=== PATIENT | female | born 1950 | race Caucasian/White ===

== ENCOUNTER 2016-12-10 09:39 | Emergency (ER) | payer BC, MEDICARE ==
[~2016-12-10 09:39] MED LIST: /MOM400 PO; ACET50TA PO; HIGH BP MED; IBUP600T26 PO; LORTTAB5 PO; PRIL20CA PO; VIBR100C PO
[2016-12-10] MEDS ORDERED: ACETAMINOPHEN 325 MG TAB As Ordered ONE (10:35)
[2016-12-10] MEDS ORDERED: IPRATROPIUM 0.5MG/ALBUTEROL 2.5MG INH SOL UD 3ML (DUONEB)(J7620) As Ordered ONE ×2 (10:44→10:45)
--- NOTE | 2016-12-10 10:51 | REP ---
CHEST X-RAY: Two views. HISTORY: Cough. Comparison chest x-ray May 26, 2013. FINDINGS: The lungs are mildly hyperinflated but clear. Pleural angles are sharp. Heart is not enlarged. Pulmonary vasculature is not increased. There are degenerative changes in the thoracic spine. IMPRESSION: Mild hyperinflation. Otherwise no acute disease. Signed by Miguel Angel Juan MD 12/10/2016 11:03 A
[2016-12-10] MEDS ORDERED: AUGMENTIN 875 MG TAB As Ordered ONE (11:28)
--- NOTE | 2016-12-10 11:31 | EDDOCDS ---
Physician Documentation [facility] Name: Varsha Salomon Age: 66 yrs Sex: Female : 1950 Arrival Date: 12/10/2016 Time: 09:39 Bed I6 / 28 Private MD: April Hicks Disposition: 12/10/16 11:14 Discharged to Home/Self Care. Impression: Acute sinusitis, Acute bronchitis. - Condition is Stable. - Discharge Instructions: Sinusitis, Noze-hv-Cthf, Acute Bronchitis, Xcbo-xf-Rlfv. - Prescriptions for Augmentin 875- 125 mg Oral Tablet - take 1 tablet by ORAL route every 12 hours for 10 days; 20 tablet. Ibuprofen 800 mg Oral Tablet - take 1 tablet by ORAL route every 12 hours As needed take with food; 20 tablet. Claritin 10 mg Oral Tablet - take 1 tablet by ORAL route once daily As needed; 30 tablet. Mucinex 600 mg - take 1 tablet by ORAL route 2 times per day; 30 tablet. Albuterol Sulfate 90 mcg/actuation Inhalation HFA Aerosol Inhaler - inhale 2 puff by INHALATION route every 4 hours As needed; 1 Inhaler. Tylenol 325 mg Oral Tablet - take 2 tablets by ORAL route every 6 hours as needed; 30 tablet. - Medication Reconciliation, Local Pharmacy Hours form. - Follow up: April Hicks; When: 1 - 2 days; Reason: Recheck today's complaints, Continuance of care. Follow up: Emergency Department; Reason: Worsening of conditions. - Problem is new. - Symptoms have improved. Historical: - Allergies: no known allergies; - Home Meds: 1. omeprazole 40 mg Oral cpDR 1 cap prn 2. Aleve 220 mg Oral cap every 6 hours (Last dose: 12/10/2016 06:00) - PMHx: GERD; - PSHx: Hysterectomy; Tonsillectomy; - Social history: Smoking status: Patient states former smoker of tobacco. No barriers to communication noted, The patient speaks fluent Cuban, Speaks appropriately for age. - Family history: Not pertinent. - : The pt / caregiver states he / she is not on anticoagulants. Home medication list is obtained from the patient. - Exposure Risk Screening:: None identified. Vital Signs: 12/10 09:41 BP 152 / 79; Pulse 117; Resp 20; Temp 100.1(O); Pulse Ox 96% ; Weight 105.69 kg / jlf 233.01 lbs; Height 5 ft. 5 in. (165.10 cm); Pain 0/10; 11:26 BP 129 / 70; Pulse 121; Resp 20; Temp 99.8; Pulse Ox 95% ; Pain 0/10; jam1 11:30 Temp 99.7(O); js13 09:41 Body Mass Index 38.77 (105.69 kg, 165.10 cm) jlf MDM: 09:47 Strep Screen, Nursing ordered. kr3 09:53 GATS (NEGATIVE STREP SCREEN) Ordered. EDMS 10:03 [facility] Payment Agreement was scanned into [employer] and attached to record. lg 10:14 Financial registration complete. mpb 10:16 Albuterol-Ipratropium 1 neb Nebulizer every 20 minutes x3 ordered. ef1 10:16 Call Respiratory ordered. ef1 10:16 Obtain sample by nasopharyngeal swab ordered. ef1 10:16 Acetaminophen Tablet 650 mg PO once ordered. ef1 10:17 Chest, 2 View (pa\E\lat) Ordered. EDMS 10:18 -Influenza A&B Rapid Antigen - Nose Ordered. EDMS 10:33 Call Respiratory complete. kr3 11:03 -Influenza A&B Rapid Antigen - Nose Reviewed. ef1 11:16 Amoxicillin-Clavulanate 875 mg 1 tabs PO once ordered. ef1 11:17 Chest, 2 View (pa\E\lat) Reviewed. ef1 Administered Medications: 10:36 Drug: Acetaminophen 650 mg [acetaminophen 325 mg tablet (2 tabs)] Route: PO; js13 11:30 Follow up: Temp 99.7 Oral; Response: Temperature is decreased js13 10:44 Drug: Albuterol-Ipratropium 1 neb [ipratropium-albuterol 0.5 mg-3 mg(2.5 mg base)/3 mL ac1 nebulization soln (1 neb)] Route: Nebulizer; 10:57 Follow up: BS-CLEAR BUT DIMINISHED BILAT THROUGHOUT ac1 10:58 Drug: Albuterol-Ipratropium 1 neb [ipratropium-albuterol 0.5 mg-3 mg(2.5 mg base)/3 mL ac1 nebulization soln (1 neb)] Route: Nebulizer; 11:30 Drug: Amoxicillin-Clavulanate 1 tabs [amoxicillin 875 mg-potassium clavulanate 125 mg js13 tablet (1 tabs)] Route: PO; 11:30 Follow up: Response: Pt left department before re-evaluation is appropriate js13 Signatures: Dispatcher [employer] Arabella Huber, RN RN [facility] Sergio Buenrostro, Reg Reg lg Danielle HallRN RN monique3 Lilliana Wayne, PADianneC PADianneC ef1 Katty Hernandes RN RN js13 Bhavesh Hargrove, Reg Reg mpb Alice Carson RT ac1 The chart was reviewed and I authenticate all verbal orders and agree with the evaluation and treatment provided.Attachments: 10:03 [facility] Payment Agreement lg MTDD
--- NOTE | 2016-12-10 11:31 | EDDOCDS ---
Nurse's Notes [facility] Name: Varsha Salomon Age: 66 yrs Sex: Female : 1950 Arrival Date: 12/10/2016 Time: 09:39 Bed I6 / 28 Private MD: April Hicks Diagnosis: Acute sinusitis;Acute bronchitis Presentation: 12/10 09:42 Presenting complaint: Patient states: hurts to cough. sob with exertion. sore throat srm for 1 day. body aches, dry heaving, peeing alot. Risk factors: Stridor is not present. Drooling is not present. Shortness of breath is not present. Cellulitis is not present. Adult Sepsis Screening: The patient does not have new or worsening altered mentation. Patient's respiratory rate is less than 22. Systolic blood pressure is greater than 100. Patient has a qSOFA score of 0- Negative Sepsis Screen. Suicide/Homicide risk assessment- the patient denies having any suicidal and/or homicidal ideations and does not present with any other emotional, behavioral or mental health complaints. Status: Patient is not a customer service clerk or dependent. Transition of care: patient was not received from another setting of care. 09:42 Method Of Arrival: Walkin/Carried/Asstd srm 10:05 Acuity: PORSHA Level 4 srm Triage Assessment: 09:44 General: Appears in no apparent distress, Behavior is appropriate for age, cooperative. srm Pain: Pain currently is 0 out of 10 on a pain scale. At worst was 8 out of 10 on a pain scale. HIV screening NA for this visit Offered previously. EENT: Reports sore throat. Historical: - Allergies: no known allergies; - Home Meds: 1. omeprazole 40 mg Oral cpDR 1 cap prn 2. Aleve 220 mg Oral cap every 6 hours (Last dose: 12/10/2016 06:00) - PMHx: GERD; - PSHx: Hysterectomy; Tonsillectomy; - Social history: Smoking status: Patient states former smoker of tobacco. No barriers to communication noted, The patient speaks fluent Kinyarwanda, Speaks appropriately for age. - Family history: Not pertinent. - : The pt / caregiver states he / she is not on anticoagulants. Home medication list is obtained from the patient. - Exposure Risk Screening:: None identified. Screenin:01 Screening information is obtained from the patient. Fall risk: No risks identified. kr3 Assistance ADL's: requires no assistance with activities of daily living. Abuse/DV Screen: The patient / caregiver reports he/she is: not in a situation that causes fear, pain or injury. Nutritional screening: No deficits noted. Advance Directives: Currently, there is no health care proxy. home support is adequate. Assessment: 10:00 General: Appears in no apparent distress, comfortable, Behavior is appropriate for age, kr3 cooperative. Neurological: No deficits noted. EENT: Throat is clear. Respiratory: Airway is patent Respiratory effort is even, unlabored. Derm: Skin is normal. 11:26 General: Appears in no apparent distress, comfortable, Behavior is appropriate for age, js13 cooperative. Pain: Denies pain. Neurological: Level of Consciousness is awake, alert. Respiratory: Airway is patent Respiratory effort is even, unlabored, Respiratory pattern is regular, symmetrical, Breath sounds are clear. Derm: Skin is pink, warm & dry. Vital Signs: 09:41 BP 152 / 79; Pulse 117; Resp 20; Temp 100.1(O); Pulse Ox 96% ; Weight 105.69 kg; Height jlf 5 ft. 5 in. (165.10 cm); Pain 0/10; 11:26 BP 129 / 70; Pulse 121; Resp 20; Temp 99.8; Pulse Ox 95% ; Pain 0/10; jam1 11:30 Temp 99.7(O); js13 09:41 Body Mass Index 38.77 (105.69 kg, 165.10 cm) [facility] Vitals: 09:41 Log In Time: December 10, 2016 at 09:40. jlf 09:52 Strep Screen is obtained and tested: Negative, a GATSNEG culture is ordered in [facility] kr3 and sent. ED Course: 09:40 Patient visited by Brook Isaacs PCA. jlf 09:40 Patient moved to Waiting jlf 09:41 April Hicks is Private Physician. jlf 09:41 Patient visited by Brook Isaacs PCA. jlf 09:41 Patient moved to Pre RCE jlf 09:44 Patient moved to Triage 1 srm 09:52 Lilliana Wayne PA-C is PHCP. ef1 09:52 Indira Vale MD is Attending Physician. ef1 10:01 The patient / caregiver is instructed regarding the plan of care and ED course. Patient kr3 has correct armband on for positive identification. 10:01 No IV's were initiated during this patient's visit. No procedures done that require kr3 assistance. 10:03 [facility] Payment Agreement was scanned into [employer] and attached to record. lg 10:05 Triage Initiated srm 10:10 Patient visited by Lilliana Wayne PA-C. ef1 10:33 Patient moved to kr3 10:36 -Influenza A&B Rapid Antigen - Nose Sent. js13 10:47 Patient visited by Lilliana Wayne PA-C. ef1 11:07 Chest, 2 View (pa\E\lat) Returned. EDMS 11:13 Patient visited by Lilliana Wayne PA-C. ef1 11:14 April Hicks is Referral Physician. ef1 Administered Medications: 10:36 Drug: Acetaminophen 650 mg [acetaminophen 325 mg tablet (2 tabs)] Route: PO; js13 11:30 Follow up: Temp 99.7 Oral; Response: Temperature is decreased js13 10:44 Drug: Albuterol-Ipratropium 1 neb [ipratropium-albuterol 0.5 mg-3 mg(2.5 mg base)/3 mL ac1 nebulization soln (1 neb)] Route: Nebulizer; 10:57 Follow up: BS-CLEAR BUT DIMINISHED BILAT THROUGHOUT ac1 10:58 Drug: Albuterol-Ipratropium 1 neb [ipratropium-albuterol 0.5 mg-3 mg(2.5 mg base)/3 mL ac1 nebulization soln (1 neb)] Route: Nebulizer; 11:30 Drug: Amoxicillin-Clavulanate 1 tabs [amoxicillin 875 mg-potassium clavulanate 125 mg js13 tablet (1 tabs)] Route: PO; 11:30 Follow up: Response: Pt left department before re-evaluation is appropriate js13 Intake: RT: 10:44 Initial Med Neb Given as ordered Patient was instructed and evaluated on procedure. ac1 Respiratory: Breath sounds are clear Breath sounds are diminished bilaterally. 11:02 Subsequent Med Neb Given as ordered. ac1 11:06 Respiratory: Breath sounds with rhonchi bilaterally. in left posterior lower lobe. ac1 Order Results: Lab Order: -Influenza A&B Rapid Antigen - Nose; SPEC'M 12/10/16 10:36 Test: INFLUENZA A RAPID SCR by ICA; Value: INFLUENZA A RESULTS NEGATIVE; Status: F Test: INFLUENZA A RAPID SCR by ICA; Value: Comments:; Status: F Test: INFLUENZA B RAPID SCR by ICA; Value: INFLUENZA B RESULTS NEGATIVE; Status: F Test Note: ; The Influenza test is a direct rapid immunoassay for the qualitative detection of Influenza viral antigen. Cell culture (Viral Culture) testing should be considered to confirm NEGATIVE results and to assist in detecting other viruses that can provide similar clinical symptoms. Please contact the lab within 24 hours ([phone]) if confirmatory testing is desired. Radiology Order: Chest, 2 View (pa\E\lat) Test: Chest, 2 View (pa\E\lat) REASON FOR EXAMINATION: Cough; CHEST X-RAY: Two views.; ; HISTORY: Cough.; ; Comparison chest x-ray May 26, 2013.; ; FINDINGS: The lungs are mildly hyperinflated but clear. Pleural angles are; sharp. Heart is not enlarged. Pulmonary vasculature is not increased. There; are degenerative changes in the thoracic spine.; ; IMPRESSION:; ; Mild hyperinflation. Otherwise no acute disease.; ; ; ; Unreviewed; Outcome: 10:01 No special radiology studies were completed. kr3 11:14 Discharge ordered by Provider. ef1 11:26 Discharge Assessment: Patient awake, alert and oriented x 3. No cognitive and/or js13 functional deficits noted. Patient verbalized understanding of disposition instructions. patient administered narcotics - no. The following High Risk Discharge criteria are identified: None. Discharged to home ambulatory. Condition: stable. Discharge instructions given to patient, Instructed on discharge instructions, follow up and referral plans. medication usage, Demonstrated understanding of instructions, medications, Pt was receptive of discharge instructions/ teaching. Prescriptions given X x6. Property :Personal belongings accompany Pt. 11:31 Patient left the ED. js13 Signatures: Dispatcher [employer] EDMS Arabella Samayoa RN RN srm Murphy, Jane, KILN WORKER KILN WORKER jam1 Sergio Buenrostro, Reg Reg lg Alice Carson,RT RT ac1 Danielle Hall RN RN kr3 Lilliana Wayne, PA-C PA-C ef1 Katty Hernandes,RN RN js13 Brook Isaacs, KILN WORKER KILN WORKER jlf MTDD
--- NOTE | 2016-12-12 12:31 | EDDOCDS ---
Physician Documentation [facility] Name: Varsha Salomon Age: 66 yrs Sex: Female : 1950 Arrival Date: 12/10/2016 Time: 09:39 Bed I6 / 28 Private MD: April Hicks Disposition: 12/10/16 11:14 Discharged to Home/Self Care. Impression: Acute sinusitis, Acute bronchitis. - Condition is Stable. - Discharge Instructions: Sinusitis, Knkc-wk-Cdcv, Acute Bronchitis, Xrfg-uc-Fgnc. - Prescriptions for Augmentin 875- 125 mg Oral Tablet - take 1 tablet by ORAL route every 12 hours for 10 days; 20 tablet. Ibuprofen 800 mg Oral Tablet - take 1 tablet by ORAL route every 12 hours As needed take with food; 20 tablet. Claritin 10 mg Oral Tablet - take 1 tablet by ORAL route once daily As needed; 30 tablet. Mucinex 600 mg - take 1 tablet by ORAL route 2 times per day; 30 tablet. Albuterol Sulfate 90 mcg/actuation Inhalation HFA Aerosol Inhaler - inhale 2 puff by INHALATION route every 4 hours As needed; 1 Inhaler. Tylenol 325 mg Oral Tablet - take 2 tablets by ORAL route every 6 hours as needed; 30 tablet. - Medication Reconciliation, Local Pharmacy Hours form. - Follow up: April Hicks; When: 1 - 2 days; Reason: Recheck today's complaints, Continuance of care. Follow up: Emergency Department; Reason: Worsening of conditions. - Problem is new. - Symptoms have improved. Historical: - Allergies: no known allergies; - Home Meds: 1. omeprazole 40 mg Oral cpDR 1 cap prn 2. Aleve 220 mg Oral cap every 6 hours (Last dose: 12/10/2016 06:00) - PMHx: GERD; - PSHx: Hysterectomy; Tonsillectomy; - Social history: Smoking status: Patient states former smoker of tobacco. No barriers to communication noted, The patient speaks fluent Thai, Speaks appropriately for age. - Family history: Not pertinent. - : The pt / caregiver states he / she is not on anticoagulants. Home medication list is obtained from the patient. - Exposure Risk Screening:: None identified. Vital Signs: 12/10 09:41 BP 152 / 79; Pulse 117; Resp 20; Temp 100.1(O); Pulse Ox 96% ; Weight 105.69 kg / jlf 233.01 lbs; Height 5 ft. 5 in. (165.10 cm); Pain 0/10; 11:26 BP 129 / 70; Pulse 121; Resp 20; Temp 99.8; Pulse Ox 95% ; Pain 0/10; jam1 11:30 Temp 99.7(O); js13 09:41 Body Mass Index 38.77 (105.69 kg, 165.10 cm) jl MDM: 09:47 Strep Screen, Nursing ordered. kr3 09:53 GATS (NEGATIVE STREP SCREEN) Ordered. EDMS 10:03 [facility] Payment Agreement was scanned into [employer] and attached to record. lg 10:14 Financial registration complete. mpb 10:16 Albuterol-Ipratropium 1 neb Nebulizer every 20 minutes x3 ordered. ef1 10:16 Call Respiratory ordered. ef1 10:16 Obtain sample by nasopharyngeal swab ordered. ef1 10:16 Acetaminophen Tablet 650 mg PO once ordered. ef1 10:17 Chest, 2 View (pa\E\lat) Ordered. EDMS 10:18 -Influenza A&B Rapid Antigen - Nose Ordered. EDMS 10:33 Call Respiratory complete. kr3 11:03 -Influenza A&B Rapid Antigen - Nose Reviewed. ef1 11:16 Amoxicillin-Clavulanate 875 mg 1 tabs PO once ordered. ef1 11:17 Chest, 2 View (pa\E\lat) Reviewed. ef1 12:53 T-Sheet-- Draft Copy was scanned into [employer] and attached to record. klr 14:23 Radiology Report was scanned into [employer] and attached to record. gb Administered Medications: 10:36 Drug: Acetaminophen 650 mg [acetaminophen 325 mg tablet (2 tabs)] Route: PO; js13 11:30 Follow up: Temp 99.7 Oral; Response: Temperature is decreased js13 10:44 Drug: Albuterol-Ipratropium 1 neb [ipratropium-albuterol 0.5 mg-3 mg(2.5 mg base)/3 mL ac1 nebulization soln (1 neb)] Route: Nebulizer; 10:57 Follow up: BS-CLEAR BUT DIMINISHED BILAT THROUGHOUT ac1 10:58 Drug: Albuterol-Ipratropium 1 neb [ipratropium-albuterol 0.5 mg-3 mg(2.5 mg base)/3 mL ac1 nebulization soln (1 neb)] Route: Nebulizer; 11:30 Drug: Amoxicillin-Clavulanate 1 tabs [amoxicillin 875 mg-potassium clavulanate 125 mg js13 tablet (1 tabs)] Route: PO; 11:30 Follow up: Response: Pt left department before re-evaluation is appropriate js13 Signatures: Dispatcher [employer] EDArabella Thomas, RN RN srm Nicki Chew, Reg Reg gb Sergio Buenrostro, Reg Reg lg Danielle Hall,ADOLPH FARFAN kr3 Lilliana Wayne, PADianneC PAKatty LawrenceRN RN js13 Bhavesh Hargrove, Reg Reg mpLola Greene Amy RT ac1 The chart was reviewed and I authenticate all verbal orders and agree with the evaluation and treatment provided.Attachments: 10:03 [facility] Payment Agreement lg 12:53 T-Sheet-- Draft Copy klr Chart Complete [facility]
--- NOTE | 2016-12-12 12:31 | EDDOCDS ---
Physician Documentation [facility] Name: Varsha Salomon Age: 66 yrs Sex: Female : 1950 Arrival Date: 12/10/2016 Time: 09:39 Bed I6 / 28 Private MD: April Hicks Disposition: 12/10/16 11:14 Discharged to Home/Self Care. Impression: Acute sinusitis, Acute bronchitis. - Condition is Stable. - Discharge Instructions: Sinusitis, Zzbm-ds-Suha, Acute Bronchitis, Dzap-vi-Inkl. - Prescriptions for Augmentin 875- 125 mg Oral Tablet - take 1 tablet by ORAL route every 12 hours for 10 days; 20 tablet. Ibuprofen 800 mg Oral Tablet - take 1 tablet by ORAL route every 12 hours As needed take with food; 20 tablet. Claritin 10 mg Oral Tablet - take 1 tablet by ORAL route once daily As needed; 30 tablet. Mucinex 600 mg - take 1 tablet by ORAL route 2 times per day; 30 tablet. Albuterol Sulfate 90 mcg/actuation Inhalation HFA Aerosol Inhaler - inhale 2 puff by INHALATION route every 4 hours As needed; 1 Inhaler. Tylenol 325 mg Oral Tablet - take 2 tablets by ORAL route every 6 hours as needed; 30 tablet. - Medication Reconciliation, Local Pharmacy Hours form. - Follow up: April Hicks; When: 1 - 2 days; Reason: Recheck today's complaints, Continuance of care. Follow up: Emergency Department; Reason: Worsening of conditions. - Problem is new. - Symptoms have improved. Historical: - Allergies: no known allergies; - Home Meds: 1. omeprazole 40 mg Oral cpDR 1 cap prn 2. Aleve 220 mg Oral cap every 6 hours (Last dose: 12/10/2016 06:00) - PMHx: GERD; - PSHx: Hysterectomy; Tonsillectomy; - Social history: Smoking status: Patient states former smoker of tobacco. No barriers to communication noted, The patient speaks fluent [place], Speaks appropriately for age. - Family history: Not pertinent. - : The pt / caregiver states he / she is not on anticoagulants. Home medication list is obtained from the patient. - Exposure Risk Screening:: None identified. Vital Signs: 12/10 09:41 BP 152 / 79; Pulse 117; Resp 20; Temp 100.1(O); Pulse Ox 96% ; Weight 105.69 kg / jlf 233.01 lbs; Height 5 ft. 5 in. (165.10 cm); Pain 0/10; 11:26 BP 129 / 70; Pulse 121; Resp 20; Temp 99.8; Pulse Ox 95% ; Pain 0/10; jam1 11:30 Temp 99.7(O); js13 09:41 Body Mass Index 38.77 (105.69 kg, 165.10 cm) jl MDM: 09:47 Strep Screen, Nursing ordered. kr3 09:53 GATS (NEGATIVE STREP SCREEN) Ordered. EDMS 10:03 [facility] Payment Agreement was scanned into [employer] and attached to record. lg 10:14 Financial registration complete. mpb 10:16 Albuterol-Ipratropium 1 neb Nebulizer every 20 minutes x3 ordered. ef1 10:16 Call Respiratory ordered. ef1 10:16 Obtain sample by nasopharyngeal swab ordered. ef1 10:16 Acetaminophen Tablet 650 mg PO once ordered. ef1 10:17 Chest, 2 View (pa\E\lat) Ordered. EDMS 10:18 -Influenza A&B Rapid Antigen - Nose Ordered. EDMS 10:33 Call Respiratory complete. kr3 11:03 -Influenza A&B Rapid Antigen - Nose Reviewed. ef1 11:16 Amoxicillin-Clavulanate 875 mg 1 tabs PO once ordered. ef1 11:17 Chest, 2 View (pa\E\lat) Reviewed. ef1 12:53 T-Sheet-- Draft Copy was scanned into [employer] and attached to record. klr 14:23 Radiology Report was scanned into [employer] and attached to record. gb Administered Medications: 10:36 Drug: Acetaminophen 650 mg [acetaminophen 325 mg tablet (2 tabs)] Route: PO; js13 11:30 Follow up: Temp 99.7 Oral; Response: Temperature is decreased js13 10:44 Drug: Albuterol-Ipratropium 1 neb [ipratropium-albuterol 0.5 mg-3 mg(2.5 mg base)/3 mL ac1 nebulization soln (1 neb)] Route: Nebulizer; 10:57 Follow up: BS-CLEAR BUT DIMINISHED BILAT THROUGHOUT ac1 10:58 Drug: Albuterol-Ipratropium 1 neb [ipratropium-albuterol 0.5 mg-3 mg(2.5 mg base)/3 mL ac1 nebulization soln (1 neb)] Route: Nebulizer; 11:30 Drug: Amoxicillin-Clavulanate 1 tabs [amoxicillin 875 mg-potassium clavulanate 125 mg js13 tablet (1 tabs)] Route: PO; 11:30 Follow up: Response: Pt left department before re-evaluation is appropriate js13 Signatures: Dispatcher [employer] EDArabella Thomas, RN RN srm Nicki Chew, Reg Reg gb Sergio Buenrostro, Reg Reg lg Danielle Hall,ADOLPH FARFAN kr3 Lilliana Wayne, PADianneC PAKatty LawrenceRN RN js13 Bhavesh Hargrove, Reg Reg mpLola Greene Amy RT ac1 The chart was reviewed and I authenticate all verbal orders and agree with the evaluation and treatment provided.Attachments: 10:03 [facility] Payment Agreement lg 12:53 T-Sheet-- Draft Copy klr Chart [facility]
--- NOTE | 2016-12-12 12:32 | EDDOCDS ---
Nurse's Notes [facility] Name: Varsha Salomon Age: 66 yrs Sex: Female : 1950 Arrival Date: 12/10/2016 Time: 09:39 Bed I6 / 28 Private MD: April Hicks Diagnosis: Acute sinusitis;Acute bronchitis Presentation: 12/10 09:42 Presenting complaint: Patient states: hurts to cough. sob with exertion. sore throat srm for 1 day. body aches, dry heaving, peeing alot. Risk factors: Stridor is not present. Drooling is not present. Shortness of breath is not present. Cellulitis is not present. Adult Sepsis Screening: The patient does not have new or worsening altered mentation. Patient's respiratory rate is less than 22. Systolic blood pressure is greater than 100. Patient has a qSOFA score of 0- Negative Sepsis Screen. Suicide/Homicide risk assessment- the patient denies having any suicidal and/or homicidal ideations and does not present with any other emotional, behavioral or mental health complaints. Status: Patient is not a pharmacy tech customer service or dependent. Transition of care: patient was not received from another setting of care. 09:42 Method Of Arrival: Walkin/Carried/Asstd srm 10:05 Acuity: PORSHA Level 4 srm Triage Assessment: 09:44 General: Appears in no apparent distress, Behavior is appropriate for age, cooperative. srm Pain: Pain currently is 0 out of 10 on a pain scale. At worst was 8 out of 10 on a pain scale. HIV screening NA for this visit Offered previously. EENT: Reports sore throat. Historical: - Allergies: no known allergies; - Home Meds: 1. omeprazole 40 mg Oral cpDR 1 cap prn 2. Aleve 220 mg Oral cap every 6 hours (Last dose: 12/10/2016 06:00) - PMHx: GERD; - PSHx: Hysterectomy; Tonsillectomy; - Social history: Smoking status: Patient states former smoker of tobacco. No barriers to communication noted, The patient speaks fluent Slovak, Speaks appropriately for age. - Family history: Not pertinent. - : The pt / caregiver states he / she is not on anticoagulants. Home medication list is obtained from the patient. - Exposure Risk Screening:: None identified. Screenin:01 Screening information is obtained from the patient. Fall risk: No risks identified. kr3 Assistance ADL's: requires no assistance with activities of daily living. Abuse/DV Screen: The patient / caregiver reports he/she is: not in a situation that causes fear, pain or injury. Nutritional screening: No deficits noted. Advance Directives: Currently, there is no health care proxy. home support is adequate. Assessment: 10:00 General: Appears in no apparent distress, comfortable, Behavior is appropriate for age, kr3 cooperative. Neurological: No deficits noted. EENT: Throat is clear. Respiratory: Airway is patent Respiratory effort is even, unlabored. Derm: Skin is normal. 11:26 General: Appears in no apparent distress, comfortable, Behavior is appropriate for age, js13 cooperative. Pain: Denies pain. Neurological: Level of Consciousness is awake, alert. Respiratory: Airway is patent Respiratory effort is even, unlabored, Respiratory pattern is regular, symmetrical, Breath sounds are clear. Derm: Skin is pink, warm & dry. Vital Signs: 09:41 BP 152 / 79; Pulse 117; Resp 20; Temp 100.1(O); Pulse Ox 96% ; Weight 105.69 kg; Height jlf 5 ft. 5 in. (165.10 cm); Pain 0/10; 11:26 BP 129 / 70; Pulse 121; Resp 20; Temp 99.8; Pulse Ox 95% ; Pain 0/10; jam1 11:30 Temp 99.7(O); js13 09:41 Body Mass Index 38.77 (105.69 kg, 165.10 cm) [facility] Vitals: 09:41 Log In Time: December 10, 2016 at 09:40. jlf 09:52 Strep Screen is obtained and tested: Negative, a GATSNEG culture is ordered in [facility] kr3 and sent. ED Course: 09:40 Patient visited by Brook Isaacs PCA. jlf 09:40 Patient moved to Waiting jlf 09:41 April Hicks is Private Physician. jlf 09:41 Patient visited by Brook Isaacs PCA. jlf 09:41 Patient moved to Pre RCE jlf 09:44 Patient moved to Triage 1 srm 09:52 Lilliana Wayne PA-C is PHCP. ef1 09:52 Indira Vale MD is Attending Physician. ef1 10:01 The patient / caregiver is instructed regarding the plan of care and ED course. Patient kr3 has correct armband on for positive identification. 10:01 No IV's were initiated during this patient's visit. No procedures done that require kr3 assistance. 10:03 [facility] Payment Agreement was scanned into Seriously and attached to record. lg 10:05 Triage Initiated srm 10:10 Patient visited by Lilliana Wayne PA-C. ef1 10:33 Patient moved to kr3 10:36 -Influenza A&B Rapid Antigen - Nose Sent. js13 10:47 Patient visited by Lilliana Wayne PA-C. ef1 11:07 Chest, 2 View (pa\E\lat) Returned. EDMS 11:13 Patient visited by Lilliana Wayne PA-C. ef1 11:14 April Hicks is Referral Physician. ef1 11:38 Chest, 2 View (pa\E\lat) Returned. EDMS 12:53 T-Sheet-- Draft Copy was scanned into Seriously and attached to record. klr 14:23 Radiology Report was scanned into Seriously and attached to record. gb Administered Medications: 10:36 Drug: Acetaminophen 650 mg [acetaminophen 325 mg tablet (2 tabs)] Route: PO; js13 11:30 Follow up: Temp 99.7 Oral; Response: Temperature is decreased js13 10:44 Drug: Albuterol-Ipratropium 1 neb [ipratropium-albuterol 0.5 mg-3 mg(2.5 mg base)/3 mL ac1 nebulization soln (1 neb)] Route: Nebulizer; 10:57 Follow up: BS-CLEAR BUT DIMINISHED BILAT THROUGHOUT ac1 10:58 Drug: Albuterol-Ipratropium 1 neb [ipratropium-albuterol 0.5 mg-3 mg(2.5 mg base)/3 mL ac1 nebulization soln (1 neb)] Route: Nebulizer; 11:30 Drug: Amoxicillin-Clavulanate 1 tabs [amoxicillin 875 mg-potassium clavulanate 125 mg js13 tablet (1 tabs)] Route: PO; 11:30 Follow up: Response: Pt left department before re-evaluation is appropriate js13 Intake: RT: 10:44 Initial Med Neb Given as ordered Patient was instructed and evaluated on procedure. ac1 Respiratory: Breath sounds are clear Breath sounds are diminished bilaterally. 11:02 Subsequent Med Neb Given as ordered. ac1 11:06 Respiratory: Breath sounds with rhonchi bilaterally. in left posterior lower lobe. ac1 Order Results: Lab Order: GATS (NEGATIVE STREP SCREEN); SPEC'M 12/10/16 09:47 Test: GATS CULTURE (NEG STREP SCR); Value: GATS RESULT NEGATIVE FOR STREP PYOGENES (GROUP A); Status: F Test: GATS CULTURE (NEG STREP SCR); Value: <EXTERNAL COMMENT eCWMed> FULL REPORT IN LAB NOTES (eCW and Medent).; Status: F Lab Order: -Influenza A&B Rapid Antigen - Nose; SPEC'M 12/10/16 10:36 Test: INFLUENZA A RAPID SCR by ICA; Value: INFLUENZA A RESULTS NEGATIVE; Status: F Test: INFLUENZA A RAPID SCR by ICA; Value: Comments:; Status: F Test: INFLUENZA B RAPID SCR by ICA; Value: INFLUENZA B RESULTS NEGATIVE; Status: F Test Note: ; The Influenza test is a direct rapid immunoassay for the qualitative detection of Influenza viral antigen. Cell culture (Viral Culture) testing should be considered to confirm NEGATIVE results and to assist in detecting other viruses that can provide similar clinical symptoms. Please contact the lab within 24 hours ([phone]) if confirmatory testing is desired. Radiology Order: Chest, 2 View (pa\E\lat) Test: Chest, 2 View (pa\E\lat) REASON FOR EXAMINATION: Cough; CHEST X-RAY: Two views.; ; HISTORY: Cough.; ; Comparison chest x-ray May 26, 2013.; ; FINDINGS: The lungs are mildly hyperinflated but clear. Pleural angles are; sharp. Heart is not enlarged. Pulmonary vasculature is not increased. There; are degenerative changes in the thoracic spine.; ; IMPRESSION:; ; Mild hyperinflation. Otherwise no acute disease.; ; ; Signed by; Miguel Angel Juan MD 12/10/2016 11:03 A; Outcome: 10:01 No special radiology studies were completed. kr3 11:14 Discharge ordered by Provider. ef1 11:26 Discharge Assessment: Patient awake, alert and oriented x 3. No cognitive and/or js13 functional deficits noted. Patient verbalized understanding of disposition instructions. patient administered narcotics - no. The following High Risk Discharge criteria are identified: None. Discharged to home ambulatory. Condition: stable. Discharge instructions given to patient, Instructed on discharge instructions, follow up and referral plans. medication usage, Demonstrated understanding of instructions, medications, Pt was receptive of discharge instructions/ teaching. Prescriptions given X x6. Property :Personal belongings accompany Pt. 11:31 Patient left the ED. js13 Signatures: Dispatcher [employer] EDMS Arabella Samayoa, RN RN Mallory Sherman, BAKING POWDER MIXER BAKING POWDER MIXER jam1 Nicki Chew, Reg Reg gb Sergio Buenrostro, Reg Reg lg Yamileth,Alice,RT RT ac1 Danielle Hall,RN RN kr3 Lilliana Wayne, PA-C PA-Michelle ef1 Katty Hernandes,RN RN js13 Brook Isaacs, BAKING POWDER MIXER BAKING POWDER MIXER herbf Lola Starr Chart Complete MTDChelly
== END 2016-12-10 11:31 | disposition home or self-care (01) ==
LOC: M ED 09:39
DX: J01.90 Acute sinusitis, unspecified (principal); J20.9 Acute bronchitis, unspecified; K21.9 Gastro-esophageal reflux disease without esophagitis; Z87.891 Personal history of nicotine dependence; Z79.899 Other long term (current) drug therapy

== ENCOUNTER 2017-03-07 12:17 | Emergency (ER) | payer MEDICARE ==
[~2017-03-07] VITALS: Ht 165.1 cm; Wt 108.9 kg
[2017-03-07 12:17] VITALS: BP 206/90
[2017-03-07] MEDS ORDERED: ALEV220C2 PO (12:24)
[2017-03-07] MEDS ORDERED: ACET30TAB PO (13:41)
[2017-03-07] MEDS ORDERED: ROBA500T PO (13:41)
[2017-03-07] MEDS ORDERED: MOBI7.5T10 PO (13:41)
--- NOTE | 2017-03-07 13:57 | REP ---
LEFT FEMUR: AP and lateral views of the left femur are performed and demonstrate no fracture or dislocation. No intrinsic osseous pathology is seen. There is mild joint space narrowing, subchondral sclerosis, and spurring at the hip joint and knee joint. IMPRESSION: Mild degenerative changes. No fracture or dislocation. Signed by Iam Hubbard MD 03/07/2017 04:47 P
== END 2017-03-07 13:54 | disposition home or self-care (01) ==
LOC: M ED 12:37
DX: S76.912A Strain of unspecified muscles, fascia and tendons at thigh level, left thigh, initial encounter (principal); X58.XXXA Exposure to other specified factors, initial encounter; Y92.89 Other specified places as the place of occurrence of the external cause; Y93.89 Activity, other specified; Y99.8 Other external cause status; Z79.899 Other long term (current) drug therapy

== ENCOUNTER → 2018-01-10 | Outpatient (CLI) | payer MEDICARE ==
[2018-01-10 14:13] LABS: ANION GAP 5 MEQ/L (8-16); BLOOD UREA NITROGEN 14 MG/DL (7-18); CALCIUM LEVEL 8.8 MG/DL (8.8-10.2); CARBON DIOXIDE LEVEL 32 MEQ/L (21-32); CHLORIDE LEVEL 105 MEQ/L (98-107); CHOLESTEROL LEVEL 193 MG/DL (<200); GLOMERULAR FILTRATION RATE > 60.0 (>45); GLUCOSE, FASTING 99 MG/DL (70-100); HDL CHOLESTEROL 48 MG/DL (>40); LDL CHOLESTEROL 124.4 MG/DL (<100); NON-HDL-C 145 MG/DL; POTASSIUM SERUM 4.3 MEQ/L (3.5-5.1); SODIUM LEVEL 142 MEQ/L (136-145); TRIGLYCERIDES LEVEL 103 MG/DL (<150)
[2018-01-10 16:13] LABS: ESTIMATED AVERAGE GLUCOSE 137 MG/DL (60-110); HEMOGLOBIN A1c 6.4 %
== END ==
LOC: M LAB 11:56
DX: E66.01 Morbid (severe) obesity due to excess calories (principal); I10 Essential (primary) hypertension; Z79.899 Other long term (current) drug therapy
CPT/HCPCS: 83036

== ENCOUNTER → 2018-05-08 | Outpatient (CLI) | payer MEDICARE ==
[2018-05-08 10:11] LABS: NT-PRO BNP 240 PG/ML (<125)
[2018-05-08 10:25] LABS: ESTIMATED AVERAGE GLUCOSE 134 MG/DL (60-110); HEMOGLOBIN A1c 6.3 %
== END ==
LOC: M LAB 09:23
DX: R60.0 Localized edema (principal); R73.03 Prediabetes
CPT/HCPCS: 83036

== ENCOUNTER → 2018-06-18 | Outpatient (CLI) | payer MEDICARE ==
[2018-06-18 11:43] LABS: ANION GAP 4 MEQ/L (8-16); BLOOD UREA NITROGEN 20 MG/DL (7-18); CALCIUM LEVEL 9.1 MG/DL (8.8-10.2); CARBON DIOXIDE LEVEL 32 MEQ/L (21-32); CHLORIDE LEVEL 105 MEQ/L (98-107); CHOLESTEROL LEVEL 167 MG/DL (<200); CHOLESTEROL RISK RATIO 4.513 (<5); CREATININE FOR GFR 0.63 MG/DL (0.55-1.30); GLOMERULAR FILTRATION RATE > 60.0 (>45); GLUCOSE, FASTING 95 MG/DL (70-100); HDL CHOLESTEROL 37 MG/DL (>40); LDL CHOLESTEROL 83.8 MG/DL (<100); NON-HDL-C 130 MG/DL; POTASSIUM SERUM 4.4 MEQ/L (3.5-5.1); SODIUM LEVEL 141 MEQ/L (136-145); TRIGLYCERIDES LEVEL 231 MG/DL (<150)
[2018-06-18 11:57] LABS: MALB URINE SIEMENS 12.4 MG/L; MAU/CREAT RATIO 9.4 MCG/MG (0.0-30.0)
[2018-06-18 22:08] LABS: ESTIMATED AVERAGE GLUCOSE 137 MG/DL (60-110); HEMOGLOBIN A1c 6.4 %
== END ==
LOC: M LAB 10:38
DX: E78.00 Pure hypercholesterolemia, unspecified (principal); R73.03 Prediabetes; I10 Essential (primary) hypertension
CPT/HCPCS: 83036

== ENCOUNTER 2018-06-28 19:38 | Emergency (ER) | payer MEDICARE ==
[2018-06-28] MEDS ORDERED: ASPIRIN 81 MG CHEW TABLET PO (20:15)
[2018-06-28 20:22] LABS: BASO % 0.3 % (0.0-1.0); EOS # 0.3 10^3/uL (0.0-0.50); EOS % 3.4 % (0.0-3.0); HEMATOCRIT 36.4 % (36.0-47.0); HEMOGLOBIN 11.9 g/dl (12.0-15.5); IMMATURE GRANULOCYTE % 0.5 % (0-3.0); LYMPH % 22.3 % (24.0-44.0); MEAN CORPUSCULAR HEMOGLOBIN 28.7 pg (27.0-33.0); MEAN CORPUSCULAR HGB CONC 32.7 g/dl (32.0-36.5); MEAN CORPUSCULAR VOLUME 87.9 fl (80.0-96.0); MONO # 0.8 10^3/uL (0.0-0.8); MONO % 9.1 % (0.0-5.0); NEUTROPHILS # 5.7 10^3/uL (1.8-7.7); NEUTROPHILS % 64.4 % (36.0-66.0); PLATELET COUNT, AUTOMATED 204 10^3/uL (150-450); RED BLOOD COUNT 4.14 10^6/uL (4.00-5.40); RED CELL DISTRIBUTION WIDTH 13.7 % (11.5-14.5); WHITE BLOOD COUNT 8.8 10^3/uL (4.0-10.0)
[2018-06-28 20:33] LABS: INR 1.01; PROTHROMBIN TIME 13.4 SECONDS (12.1-14.4)
[2018-06-28 20:34] LABS: PARTIAL THROMBOPLASTIN TIME 30.8 SECONDS (25.4-37.6)
[2018-06-28 20:36] LABS: D-DIMER QUANT 490.8 ng/ml (<500)
[2018-06-28 20:38] LABS: ALBUMIN 3.8 GM/DL (3.2-5.2); ALBUMIN/GLOBULIN RATIO 1.31 (1.00-1.93); ALT/SGPT 25 U/L (12-78); ANION GAP 6 MEQ/L (8-16); AST/SGOT 16 U/L (7-37); BILIRUBIN,DIRECT < 0.1 MG/DL (0.0-0.2); BILIRUBIN,TOTAL 0.4 MG/DL (0.2-1.0); BLOOD UREA NITROGEN 15 MG/DL (7-18); C REACTIVE PROTEIN QUANTITATIV 0.39 MG/DL (0.00-0.30); CALCIUM LEVEL 8.7 MG/DL (8.8-10.2); CARBON DIOXIDE LEVEL 31 MEQ/L (21-32); CHLORIDE LEVEL 106 MEQ/L (98-107); CPK CREATINE PHOSPHOKINASE 105 U/L (26-192); CREATININE FOR GFR 0.68 MG/DL (0.55-1.30); GLOMERULAR FILTRATION RATE > 60.0 (>45); GLUCOSE, FASTING 119 MG/DL (70-100); LIPASE 112 U/L (73-393); POTASSIUM SERUM 4.1 MEQ/L (3.5-5.1); SODIUM LEVEL 143 MEQ/L (136-145); TOTAL PROTEIN 6.7 GM/DL (6.4-8.2); TROPONIN I < 0.02 NG/ML (< 0.10)
[2018-06-28 20:43] LABS: ALKALINE PHOSPHATASE 106 U/L (45-117); CK-MB VALUE MASS 1.5 NG/ML (<3.6); MB/CK RELATIVE INDEX 1.42 (< OR =4); NT-PRO BNP 730 PG/ML (<125)
[2018-06-28] MEDS: MAALOX 30 ML SUSP *UDC PO (21:04)
[2018-06-28] MEDS: FUROSEMIDE 20 MG/2 ML VIAL (J1940) IV (21:05)
== END 2018-06-28 21:31 | disposition home or self-care (01) ==
LOC: M ED 19:38
DX: J06.9 Acute upper respiratory infection, unspecified (principal); R07.89 Other chest pain; K21.9 Gastro-esophageal reflux disease without esophagitis; E78.5 Hyperlipidemia, unspecified; I10 Essential (primary) hypertension; Z87.891 Personal history of nicotine dependence
CPT/HCPCS: J1940

== ENCOUNTER 2018-08-31 05:26 | Emergency (ER) | payer MEDICARE ==
[2018-08-31] MEDS: IPRATROPIUM 0.5MG/ALBUTEROL 2.5MG INH SOL UD 3ML (DUONEB)(J7620) NEB (07:11)
[2018-08-31] MEDS: predniSONE 20 MG TAB PO (07:16)
[2018-08-31] MEDS: AZITHROMYCIN 250 MG TAB PO (07:16)
== END 2018-08-31 08:00 | disposition home or self-care (01) ==
LOC: M ED 05:26
DX: J45.901 Unspecified asthma with (acute) exacerbation (principal); J44.0 Chronic obstructive pulmonary disease with (acute) lower respiratory infection; I10 Essential (primary) hypertension; K21.9 Gastro-esophageal reflux disease without esophagitis; Z87.891 Personal history of nicotine dependence
CPT/HCPCS: 71046

== ENCOUNTER 2018-11-14 08:51 | Day surgery (SDC) | payer MEDICARE ==
[~2018-11-14] VITALS: Ht 165.1 cm; Wt 107.5 kg
[~2018-11-14 08:51] MED LIST changes: +ACET30TAB PO; +ALBU83IN NEB; +ALEV220C2 PO; +ASPI1TAB PO; +LIDOCAINE 2% INJ 100 MG/5 ML SDV (FOR ANES.) As Ordered ONE; +LISI-542 PO; +METO1TAB33; +MOBI4TAB PO; +NS 1,000 ML IV ONE; +OMEP20TA PO; +OMEP40CA2 PO; +PRED10TA2 PO; +PROAAER10 INH; +PROPOFOL 200 MG/20 ML VIAL As Ordered ONE; +ROBA500T PO; +VENTAER INH; +ZITH250T PO; +ZITHTAB PO
--- NOTE | 2018-11-14 10:17 | ROOR ---
Patient Name: Varsha Salomon Procedure Date: 11/14/2018 10:03 AM Date of : 1950 Age: 68 Room: [facility] Gender: Female Note Status: Finalized Procedure: Upper GI endoscopy Indications: Heartburn Providers: Tevin COBURN MD Referring MD: Carlos Escamilla MD Requesting Provider: Medicines: Monitored Anesthesia Care Complications: No immediate complications. Procedure: Pre-Anesthesia Assessment: - The heart rate, respiratory rate, oxygen saturations, blood pressure, adequacy of pulmonary ventilation, and response to care were monitored throughout the procedure. The Endoscope was introduced through the mouth, and advanced to the third part of duodenum. The upper GI endoscopy was accomplished without difficulty. The patient tolerated the procedure well. Findings: The examined esophagus was normal. Very small (insignificant) Hiatal Hernia. The entire examined stomach was normal. Mucosal flattening was found in the second portion of the duodenum. Biopsies for histology were taken with a cold forceps for evaluation of celiac disease. Impression: - Normal esophagus. - Very small (insignificant) Hiatal Hernia. - Normal stomach. - Flattened mucosa was found in the duodenum. Biopsied. Recommendation: - Continue present medications. - Telephone endoscopist for pathology results in 2 weeks. Tevin Coburn MD Tevin COBURN MD 11/14/2018 10:17:24 AM This report has been signed electronically. Number of Addenda: 0 Note Initiated On: 11/14/2018 10:03 AM Estimated Blood Loss: Estimated blood loss: none.
--- NOTE | 2018-11-14 10:34 | ROOR ---
Patient Name: Varsha Salomon Procedure Date: 11/14/2018 10:03 AM Date of : 1950 Age: 68 Room: [facility] Gender: Female Note Status: Finalized Procedure: Colonoscopy Indications: Screening for colorectal malignant neoplasm Providers: Tevin COBURN MD Referring MD: Carlos Escamilla MD Requesting Provider: Medicines: Monitored Anesthesia Care Complications: No immediate complications. Procedure: Pre-Anesthesia Assessment: - The heart rate, respiratory rate, oxygen saturations, blood pressure, adequacy of pulmonary ventilation, and response to care were monitored throughout the procedure. The Colonoscope was introduced through the anus and advanced to the terminal ileum, with identification of the appendiceal orifice and IC valve. The colonoscopy was performed without difficulty. The patient tolerated the procedure well. The quality of the bowel preparation was good. Findings: The perianal and digital rectal examinations were normal. Two sessile polyps were found in the sigmoid colon and splenic flexure. The polyps were diminutive in size. These polyps were removed with a cold snare. Resection and retrieval were complete. Mild sigmoid diverticulosis and small internal hemorrhoids. The exam was otherwise without abnormality on direct and retroflexion views. Impression: - Two diminutive polyps in the sigmoid colon and at the splenic flexure, removed with a cold snare. Resected and retrieved. - Mild sigmoid diverticulosis and small internal hemorrhoids. - The examination was otherwise normal on direct and retroflexion views. Recommendation: - Await pathology results. - Telephone endoscopist for pathology results in 2 weeks. - If the pathology report reveals adenomatous tissue, then repeat the colonoscopy for surveillance in 3 - 5 years. - If the pathology report indicates hyperplastic polyp, then repeat colonoscopy for screening purposes in 10 years. Tevin Coburn MD Tevin COBURN MD 11/14/2018 10:34:17 AM This report has been signed electronically. Number of Addenda: 0 Note Initiated On: 11/14/2018 10:03 AM Estimated Blood Loss: Estimated blood loss: none.
[2018-11-14 11:05] VITALS: BP 190/93
== END 2018-11-14 11:30 | disposition home or self-care (01) ==
LOC: M OPP 08:51
PROVIDERS: ATTEND Internal Medicine Gastroenterology
DX: D12.5 Benign neoplasm of sigmoid colon (principal); D12.3 Benign neoplasm of transverse colon; K57.30 Diverticulosis of large intestine without perforation or abscess without bleeding; K64.8 Other hemorrhoids; R12 Heartburn; K44.9 Diaphragmatic hernia without obstruction or gangrene; K31.89 Other diseases of stomach and duodenum; Z12.11 Encounter for screening for malignant neoplasm of colon

== ENCOUNTER → 2018-11-26 | Outpatient (CLI) | payer MEDICARE ==
[~2018-11-26] MED LIST changes: -LIDOCAINE 2% INJ 100 MG/5 ML SDV (FOR ANES.) As Ordered ONE; -NS 1,000 ML IV ONE; -PROPOFOL 200 MG/20 ML VIAL As Ordered ONE
== END ==
LOC: M LAB 14:44
PROVIDERS: ATTEND Internal Medicine Gastroenterology
DX: K90.0 Celiac disease (principal)

== ENCOUNTER → 2018-12-24 | Outpatient (CLI) | payer MEDICARE ==
[~2018-12-24] MED LIST changes: +E-Z-PAQUE 96% w/w SUSP 176GM BTL As Ordered ONE
--- NOTE | 2018-12-24 18:32 | REP ---
Small bowel follow-through The procedure was performed under the direct supervision of Dr. Blum. The images were reviewed with Dr. Blum. The hand spring repairer film shows no organomegaly or pathological masses. The intestinal gas pattern is nonspecific. Liquid barium was administered and the barium column was followed through the small bowel to the level of the terminal ileum. Small bowel transit time is approximately 15 minutes . During fluoroscopy gentle palpation shows all loops are freely movable and pliable. There are no fixed or angulated loops. The small bowel mucosal pattern is normal in course and caliber. There is no transition to suggest a partial small bowel obstruction. Spot filming of the terminal ileum shows it to be unremarkable. Impression: Small bowel follow-through examination within normal limits. 1.1 minutes of fluoro time was utilized for this procedure. Reviewed by SINCERE Flores 12/24/2018 05:47 P Electronically Signed by Derek Blum MD 12/24/2018 06:22 P
== END ==
LOC: M RAD 07:53
PROVIDERS: ATTEND Internal Medicine Gastroenterology
DX: K90.0 Celiac disease (principal)

== ENCOUNTER → 2019-12-11 | Outpatient (REF) | payer MEDICARE ==
[~2019-12-11] MED LIST changes: -/MOM400 PO; +ACET-716 PO; -ACET30TAB PO; -ACET50TA PO; -ASPI1TAB PO; +ASPI81TA26 PO; -E-Z-PAQUE 96% w/w SUSP 176GM BTL As Ordered ONE; +MAPA500T17 PO; +MILK10SU PO; +OMEP-358 PO; -OMEP20TA PO; -OMEP40CA2 PO; +OMEP40CA97 PO
[2019-12-11 15:25] LABS: INFLUENZA A AMPLIFICATION POSITIVE (NEGATIVE); INFLUENZA B AMPLIFICATION NEGATIVE (NEGATIVE)
== END ==
LOC: M LAB REF 14:24
PROVIDERS: ATTEND Physician Assistant
DX: J11.1 Influenza due to unidentified influenza virus with other respiratory manifestations (principal)

== ENCOUNTER → 2019-12-27 | Outpatient (CLI) | payer MEDICARE ==
[2019-12-27 10:29] LABS: HEMATOCRIT 37.6 % (36.0-47.0); HEMOGLOBIN 12.1 g/dl (12.0-15.5); MEAN CORPUSCULAR HEMOGLOBIN 27.9 pg (27.0-33.0); MEAN CORPUSCULAR HGB CONC 32.2 g/dl (32.0-36.5); MEAN CORPUSCULAR VOLUME 86.8 fl (80.0-96.0); PLATELET COUNT, AUTOMATED 240 10^3/uL (150-450); RED BLOOD COUNT 4.33 10^6/uL (4.00-5.40); WHITE BLOOD COUNT 9.7 10^3/uL (4.0-10.0)
== END ==
LOC: M LAB 09:57
PROVIDERS: ATTEND Physician Assistant Medical
DX: K90.0 Celiac disease (principal)

== ENCOUNTER → 2020-05-31 | Outpatient (CLI) | payer MEDICARE | LOC: M LAB 09:35 | PROVIDERS: ATTEND Physician Assistant Medical | DX: K90.0 Celiac disease (principal) ==

== ENCOUNTER 2020-08-08 17:27 | Emergency (ER) | payer MEDICARE ==
[~2020-08-08] VITALS: Ht 165.1 cm; Wt 109.7 kg
[2020-08-08 17:48] VITALS: BP 178/93
== END 2020-08-08 18:53 | disposition home or self-care (01) ==
LOC: M ED 17:27
DX: M25.561 Pain in right knee (principal); I10 Essential (primary) hypertension; J44.9 Chronic obstructive pulmonary disease, unspecified; R73.03 Prediabetes; K21.9 Gastro-esophageal reflux disease without esophagitis

== ENCOUNTER → 2021-04-26 | Outpatient (CLI) | payer MEDICARE ==
[~2021-04-26] MED LIST changes: -LISI-542 PO; +LISI-898 PO; +OMEP40CA4 PO; -OMEP40CA97 PO
== END ==
LOC: M LAB 12:13
PROVIDERS: ATTEND Nurse Practitioner Family
DX: K90.0 Celiac disease (principal)

== ENCOUNTER → 2021-04-26 | Outpatient (CLI) | payer MEDICARE ==
[2021-04-26 13:23] LABS: BASO # 0.1 10^3/uL (0.0-0.2); BASO % 0.7 % (0.0-1.0); EOS # 0.3 10^3/uL (0.0-0.5); EOS % 3.2 % (0.0-3.0); HEMATOCRIT 39.1 % (36.0-47.0); HEMOGLOBIN 12.5 g/dl (12.0-15.5); LYMPH # 2.3 10^3/uL (1.5-5.0); LYMPH % 25.5 % (24.0-44.0); MEAN CORPUSCULAR HEMOGLOBIN 28.2 pg (27.0-33.0); MEAN CORPUSCULAR VOLUME 88.1 fl (80.0-96.0); MONO # 0.8 10^3/uL (0.0-0.8); MONO % 8.8 % (2.0-8.0); NEUTROPHILS # 5.5 10^3/uL (1.5-8.5); NEUTROPHILS % 60.3 % (36.0-66.0); PLATELET COUNT, AUTOMATED 220 10^3/uL (150-450); RED BLOOD COUNT 4.44 10^6/uL (4.00-5.40); WHITE BLOOD COUNT 9.2 10^3/uL (4.0-10.0)
[2021-04-26 13:40] LABS: HEMOGLOBIN A1c 6.3 %
[2021-04-26 14:04] LABS: ALBUMIN 3.9 GM/DL (3.2-5.2); ALT/SGPT 77 U/L (12-78); BILIRUBIN,TOTAL 0.5 MG/DL (0.2-1.0); BLOOD UREA NITROGEN 13 MG/DL (7-18); CALCIUM LEVEL 9.2 MG/DL (8.8-10.2); CARBON DIOXIDE LEVEL 31 MEQ/L (21-32); CHLORIDE LEVEL 105 MEQ/L (98-107); CHOLESTEROL LEVEL 211 MG/DL (<200); GLOMERULAR FILTRATION RATE > 60.0 (>45); GLUCOSE, FASTING 100 MG/DL (70-100); HDL CHOLESTEROL 39 MG/DL (>40); LDL CHOLESTEROL 151 MG/DL (<100); NON-HDL-C 172 MG/DL; POTASSIUM SERUM 4.2 MEQ/L (3.5-5.1); SODIUM LEVEL 139 MEQ/L (136-145); TOTAL PROTEIN 7.3 GM/DL (6.4-8.2); TRIGLYCERIDES LEVEL 107 MG/DL (<150)
[2021-04-26 14:14] LABS: CREATININE, URINE 94.9 MG/DL; MALB URINE SIEMENS 5.6 MG/L; MAU/CREAT RATIO 5.9 MCG/MG (0.0-30.0)
== END ==
LOC: M LAB 12:08
PROVIDERS: ATTEND Nurse Practitioner Family
DX: E11.9 Type 2 diabetes mellitus without complications (principal)

== ENCOUNTER → 2021-05-20 | Outpatient (CLI) | payer MEDICARE ==
--- NOTE | 2021-05-20 09:12 | REPMRS ---
Patient History The patient states she has not had a clinical breast exam in over a year. Patient is postmenopausal. No known family history of cancer. Patient states no breast complaints today. Patient has signed MRS History Sheet. Digital Woman Screen Mammo: May 20, 2021 - Exam #: [id number] Bilateral CC and MLO view(s) were taken. Technologist: Gudelia Cummings, Technologist No prior studies available for comparison. FINDINGS: There are scattered fibroglandular densities. The Volpara volumetric breast density category is: B. There is no evidence of dominant mass, architectural distortion, or grouped microcalcification typical of malignancy. 3-D tomosynthesis shows no additional findings. Assessment: BI-RADS/ACR category 1 mammogram. Negative Mammogram. Recommendation Routine screening mammogram of both breasts in 1 year (for women over age 40). This patient's [facility] Lifetime Breast Cancer RIsk is estimated at 3.7 %. This mammogram was interpreted with the aid of an FDA-approved computer-aided dectection system. Electronically Signed By: Bud Juan MD 05/20/21 0911
--- NOTE | 2021-05-20 09:54 | DEXAMM ---
INDICATION: Z13.820 SCREENING FOR OSTEOPOROSIS. COMPARISON: Comparison study March 07, 2011 and August 21, 2000. TECHNIQUE: Bone density was measured using dual-energy x-ray absorptionmetry (DEXA). FINDINGS: AP SPINE L1-L4 BMD 1.601 g/cm2 Young Adult T-Score 3.3 Age Matched Z-Score 4.9. LT FEMUR, TOTAL BMD 1.133 g/cm2 Young Adult T-Score 1.0 Age Matched Z-Score 2.4. LT NECK BMD 1.009 g/cm2 Young Adult T-Score -0.2 Age Matched Z-Score 1.4. RT FEMUR, TOTAL BMD 1.174 g/cm2 Young Adult T-Score 1.3 Age Matched Z-Score 2.7. RT NECK BMD 1.097 g/cm2 Young Adult T-Score 0.4 Age Matched Z-Score 2.1. IMPRESSION: There is normal bone density of the spine. There is normal bone density of the left hip. There is normal bone density of the right hip. The density of the spine has decreased 6.8% since the initial exam on August 21, 2000. The density of the spine increased 2.4% since most recent exam on March 07, 2011. The density of the left hip has decreased 12.9% since initial exam on August 21, 2000. The density of the left hip has decreased 5.4% since most recent exam on March 07, 2011. The density of the right hip has decreased 13.2% since the initial exam on August 21, 2000. The density of the right hip has decreased 1.9% since the most recent exam on March 07, 2011. FOLLOW-UP: Recommendation for the next bone density exam: 10 years. <Electronically signed by Bud Juan > 05/20/21 0950
== END ==
LOC: M WHC 08:14
PROVIDERS: ATTEND Nurse Practitioner Family
DX: Z12.31 Encounter for screening mammogram for malignant neoplasm of breast (principal); Z13.820 Encounter for screening for osteoporosis; M81.0 Age-related osteoporosis without current pathological fracture

== ENCOUNTER → 2021-05-30 | Outpatient (CLI) | payer MEDICARE ==
[~2021-05-30] MED LIST changes: +E-Z-PAQUE 96% w/w SUSP 176GM BTL As Ordered ONE
--- NOTE | 2021-05-31 08:01 | REP ---
INDICATION: CELIAC DX. COMPARISON: None. TECHNIQUE: The procedure was performed under the direct supervision of Dr. Juan. The images were reviewed with Dr. Juan. Liquid barium was administered and the barium column was followed through the small bowel to the level of the terminal ileum. 1.1 minutes of fluoro time was utilized for this procedure. FINDINGS: The simulation tech film shows no organomegaly or pathological masses. The intestinal gas pattern is nonspecific. Small bowel transit time is approximately 30 minutes. During fluoroscopy gentle palpation shows all loops are freely movable and pliable. There are no fixed or angulated loops. The small bowel mucosal pattern is normal in course and caliber. There is no transition to suggest a partial small bowel obstruction. Spot filming of the terminal ileum shows it to be unremarkable. IMPRESSION: Small bowel follow-through examination within normal limits. <Electronically signed by Olayinka Ames > 05/30/21 3225 <Electronically signed by Bud Juan > 05/31/21 3418
== END ==
LOC: M RAD 09:12
PROVIDERS: ATTEND Physician Assistant Medical
DX: K90.0 Celiac disease (principal)

== ENCOUNTER 2021-07-20 13:17 | Emergency (ER) | payer OTHER, MEDICARE ==
[~2021-07-20] VITALS: Ht 165.1 cm; Wt 109.1 kg
[~2021-07-20 13:17] MED LIST changes: -E-Z-PAQUE 96% w/w SUSP 176GM BTL As Ordered ONE
[2021-07-20] MEDS ORDERED: OMEP10CASR PO (13:23)
[2021-07-20] MEDS ORDERED: ATOR1TAB21 (13:23)
--- NOTE | 2021-07-20 14:41 | REP ---
INDICATION: FALL. COMPARISON: None TECHNIQUE: Four views FINDINGS: There is a posterior elbow dislocation. Proximal to the radial head there is a 5 mm sized os ossific density consistent with an avulsion fracture likely from either the proximal ulna or distal humerus. Exact etiology of the fracture cannot be determined. IMPRESSION: Fracture dislocation as described above. <Electronically signed by Jerman Briseno > 07/20/21 2884
--- NOTE | 2021-07-20 14:42 | REP ---
INDICATION: FALL. COMPARISON: None. TECHNIQUE: Two views FINDINGS: See the elbow report. No additional fractures are identified. IMPRESSION: As above <Electronically signed by Jerman Briseno > 07/20/21 [id number]
--- NOTE | 2021-07-20 14:43 | REP ---
INDICATION: FALL. COMPARISON: None. TECHNIQUE: Four views FINDINGS: There is asymmetric intra digital joint space narrowing with tiny marginal osteophyte formation involving all digits. There is no evidence of an acute fracture, dislocation, or subluxation. IMPRESSION: Chronic changes as described above. No evidence of an acute abnormality. <Electronically signed by Jerman Briseno > 07/20/21 1154
[2021-07-20] MEDS ORDERED: ONDANSETRON 4MG/2ML VIAL IV ONE (15:30)
[2021-07-20] MEDS ORDERED: MORPHINE 4 MG/ML 1ML VIAL/SYRINGE (J2270) IV ONE ×2 (15:30→19:25)
[2021-07-20] MEDS ORDERED: NS 1,000 ML IV SCH (16:35)
[2021-07-20] MEDS ORDERED: propofoL 200 MG/20 ML VIAL IV.PROC PRN (16:35)
--- NOTE | 2021-07-20 18:14 | REP ---
INDICATION: post reduction. COMPARISON: Earlier today TECHNIQUE: Portable AP and lateral views FINDINGS: The previously described elbow dislocation has been reduced. There is a joint effusion. Calcifications last ossification is seen adjacent to both medial and lateral distal humeral epicondyles consistent with avulsion fractures. IMPRESSION: Reduction and possible fractures as described above. Ligamentous trauma cannot be ruled out. Consider follow-up with MRI. <Electronically signed by Jerman Briseno > 07/20/21 1197
[2021-07-20] MEDS ORDERED: MORPHINE 2 MG/ML 1ML VIAL (J2270) IV ONE (19:25)
[2021-07-20] MEDS ORDERED: OXYCODONE/APAP 5MG/325MG(BULK FOR ED) 1 TABLET PO ONE (21:00)
[2021-07-20 21:30] VITALS: BP 152/70
--- NOTE | 2021-07-21 08:36 | REP ---
INDICATION: left elbow fracture/dislocation. COMPARISON: Radiographs 07/20/2021. TECHNIQUE: Axial CT imaging with sagittal reconstruction images. The exam is performed with the elbow bent at 90 degrees. FINDINGS: Small subcentimeter avulsion fractures are seen along the medial and lateral humeral condyles. Alignment appears anatomic. No other fracture is seen. No bone lesion is seen. There is surrounding Soft tissue edema. the surface of the liver appears lobulated raising the possibility of cirrhosis. IMPRESSION: Successful reduction of previously noted dislocation. Subcentimeter avulsion fractures of the medial and lateral humeral condyles. Cirrhotic liver suspected. Preliminary report provided by virtual Radiology at the time of the exam. <Electronically signed by Iam Hubbard > 07/21/21 0888
== END 2021-07-20 22:13 | disposition home or self-care (01) ==
LOC: M ED 13:17
DX: S50.02XA Contusion of left elbow, initial encounter (principal); S53.125A Posterior dislocation of left ulnohumeral joint, initial encounter; S42.455A Nondisplaced fracture of lateral condyle of left humerus, initial encounter for closed fracture; S42.465A Nondisplaced fracture of medial condyle of left humerus, initial encounter for closed fracture; W01.0XXA Fall on same level from slipping, tripping and stumbling without subsequent striking against object, initial encounter; Y92.219 Unspecified school as the place of occurrence of the external cause; Y93.9 Activity, unspecified; Y99.0 Civilian activity done for income or pay; I10 Essential (primary) hypertension; R73.03 Prediabetes; E78.5 Hyperlipidemia, unspecified; Z86.16 Personal history of COVID-19; Z79.899 Other long term (current) drug therapy
CPT/HCPCS: 24620; 73070; 73080; 73090; 73130; 73200; 93041; 94760; 96361; 96374; 96375; 96376; 99285; J2270; J2405

== ENCOUNTER → 2021-07-28 | Outpatient (CLI) | payer OTHER, MEDICARE ==
[~2021-07-28] MED LIST changes: +ATOR1TAB21; +OMEP10CASR PO
--- NOTE | 2021-07-28 10:16 | REP ---
INDICATION: LT ELBOW PAIN. COMPARISON: 07/20/2021. TECHNIQUE: Three views left elbow. FINDINGS: Two ossific densities along the lateral humeral epicondyle and 1 along the medial humeral epicondyle are unchanged. The osseous structures are well-aligned. Oval soft tissue density medial to the elbow joint likely represents fluid/hematoma status post fracture/dislocation. IMPRESSION: Osseous structures are unchanged in appearance compared to the prior study. <Electronically signed by Iam Hubbard > 07/28/21 1012
== END ==
LOC: M SOG 09:53
PROVIDERS: ATTEND Student in an Organized Health Care Education/Training Program
DX: M25.522 Pain in left elbow (principal)

== ENCOUNTER → 2021-08-25 | Outpatient (CLI) | payer OTHER, MEDICARE ==
--- NOTE | 2021-08-25 11:08 | REP ---
INDICATION: LT ELBOW PAIN/ORTHOPEDIC AFTERCARE. COMPARISON: 07/08/2021 TECHNIQUE: AP, lateral, axial views of the left elbow FINDINGS: Osseous densities along the medial and lateral condyles are essentially unchanged in appearance. The joint spaces are otherwise intact and appear relatively normal. Lateral view demonstrates mild elevation to the anterior fat pad which may reflect a small underlying effusion and possibly improved from prior examination. IMPRESSION: No significant change from prior examination although minimally decreased joint fluid is suspected. <Electronically signed by Sean Sung > 08/25/21 1108
== END ==
LOC: M SOG 09:16
PROVIDERS: ATTEND Student in an Organized Health Care Education/Training Program
DX: Z47.89 Encounter for other orthopedic aftercare (principal); M25.522 Pain in left elbow

== ENCOUNTER → 2021-08-26 | Outpatient (CLI) | payer MEDICARE, OTHER ==
--- NOTE | 2021-09-06 13:58 | REP ---
INDICATION: PAIN IN RIGHT KNEE COMPARISON: None. TECHNIQUE: AP, lateral, bilateral oblique and sunrise views right knee. FINDINGS: Early advanced tricompartmental osteoarthritic degenerative changes include subchondral sclerosis, joint space narrowing, cortical irregularity and osteophytosis. No obvious acute fracture or dislocation. No suprapatellar effusion. IMPRESSION: Early advanced tricompartmental osteoarthritic degenerative changes. No obvious acute fracture or dislocation. If the patient remains symptomatic consider CT or MRI for further investigation. <Electronically signed by Sean Sung > 09/06/21 3306
== END ==
LOC: M PLALAB 15:01
PROVIDERS: ATTEND Nurse Practitioner Family
DX: M17.11 Unilateral primary osteoarthritis, right knee (principal); M25.561 Pain in right knee

== ENCOUNTER → 2021-09-05 | Outpatient (CLI) | payer OTHER, MEDICARE ==
--- NOTE | 2021-09-05 14:59 | REP ---
INDICATION: SWELLING RT LOWER EXTREM COMPARISON: None. TECHNIQUE: Real time compression and duplex Doppler interrogation of the right lower extremity deep venous system is performed, including the left common femoral vein.Compression of the right peroneal and posterior tibial veins is performed. FINDINGS: The right common femoral, superficial femoral and popliteal veins are fully compressible with transducer pressure and demonstrate normal spontaneous and phasic flow, without evidence of deep venous thrombosis.The left common femoral vein demonstrates no thrombus.The right peroneal and posterior tibial veins could not be visualized. IMPRESSION: No evidence of deep venous thrombosis of the right lower extremity femoral popliteal venous system. <Electronically signed by Iam Hubbard > 09/05/21 [id number]
--- NOTE | 2021-09-05 15:53 | REP ---
INDICATION: TINGLING. COMPARISON: None. TECHNIQUE: Real time hubbard scale and Duplex Doppler evaluation of the right lower extremity arterial vasculature using linear high frequency transducer. FINDINGS: Duplex doppler interrogation demonstrates normal triphasic and biphasic wave patterns and normal flow velocities from the common femoral artery through the popliteal and calf arteries. There is no evidence of stenosis or arterial occlusion. PSV(cm/sec) Common femoral artery: 129 cm/s Profunda femoris artery: 82 cm/s Proximal superficial femoral artery: 109 cm/s Mid superficial femoral artery: 99 cm/s Distal superficial femoral artery: 91 cm/s Popliteal artery: 65 cm/s Proximal JUWAN: 90 cm/s Tibioperoneal trunk: 50 cm/s Proximal MACHINE JOINT CUTTER: 47 cm/s Distal MACHINE JOINT CUTTER: 65 cm/s Distal JUWAN: 5 101 cm/s IMPRESSION: No Duplex Doppler sonographic evidence of hemodynamically significant stenosis of the right lower extremity arterial system. <Electronically signed by Iam Hubbard > 09/05/21 1541
== END ==
LOC: M RAD 12:17
PROVIDERS: ATTEND Nurse Practitioner Family
DX: M79.89 Other specified soft tissue disorders (principal)

== ENCOUNTER → 2021-10-11 | Outpatient (CLI) | payer OTHER, MEDICARE ==
--- NOTE | 2021-10-11 13:29 | REP ---
INDICATION: LUMBAR RADICULOPATY COMPARISON: None. TECHNIQUE: AP, lateral, coned-down views of the lumbar spine. FINDINGS: Mild chronic dextroconvex scoliosis centered at L2-3. Lateral view demonstrates chronic grade 1 anterolisthesis at L4-5 along with multilevel endplate sclerosis, disc space narrowing, marginal spurring and facet hypertrophy. No evidence for acute fracture/compression injury. IMPRESSION: Moderate degenerative changes as described above. No acute fracture/compression injury. <Electronically signed by Sean Sung > 10/11/21 [id number]
== END ==
LOC: M SOG 11:14
PROVIDERS: ATTEND Orthopaedic Surgery Sports Medicine
DX: M54.16 Radiculopathy, lumbar region (principal)

== ENCOUNTER → 2021-10-14 | Outpatient (CLI) | payer MEDICARE ==
[2021-10-14 10:00] LABS: BASO # 0.1 10^3/uL (0.0-0.2); BASO % 0.6 % (0.0-1.0); EOS # 0.2 10^3/uL (0.0-0.5); EOS % 2.4 % (0.0-3.0); HEMATOCRIT 37.8 % (36.0-47.0); HEMOGLOBIN 12.4 g/dl (12.0-15.5); LYMPH # 1.7 10^3/uL (1.5-5.0); LYMPH % 21.1 % (24.0-44.0); MEAN CORPUSCULAR HEMOGLOBIN 28.8 pg (27.0-33.0); MEAN CORPUSCULAR HGB CONC 32.8 g/dl (32.0-36.5); MEAN CORPUSCULAR VOLUME 87.7 fl (80.0-96.0); MONO # 0.6 10^3/uL (0.0-0.8); MONO % 6.9 % (2.0-8.0); NEUTROPHILS # 5.5 10^3/uL (1.5-8.5); NEUTROPHILS % 68.4 % (36.0-66.0); PLATELET COUNT, AUTOMATED 226 10^3/uL (150-450); RED BLOOD COUNT 4.31 10^6/uL (4.00-5.40); WHITE BLOOD COUNT 8.1 10^3/uL (4.0-10.0)
[2021-10-14 10:18] LABS: HEMOGLOBIN A1c 6.2 %
[2021-10-14 10:33] LABS: MALB URINE SIEMENS 45.1 MG/L; MAU/CREAT RATIO 42.9 MCG/MG (0.0-30.0)
[2021-10-14 10:46] LABS: ALBUMIN 3.7 GM/DL (3.2-5.2); ALT/SGPT 32 U/L (12-78); BILIRUBIN,TOTAL 0.6 MG/DL (0.2-1.0); BLOOD UREA NITROGEN 14 MG/DL (7-18); CALCIUM LEVEL 9.1 MG/DL (8.8-10.2); CARBON DIOXIDE LEVEL 29 MEQ/L (21-32); CHLORIDE LEVEL 107 MEQ/L (98-107); CHOLESTEROL LEVEL 142 MG/DL (<200); CHOLESTEROL RISK RATIO 3.086 (<5); CREATININE FOR GFR 0.56 MG/DL (0.55-1.30); GLOMERULAR FILTRATION RATE > 60.0 (>45); GLUCOSE, FASTING 113 MG/DL (70-100); HDL CHOLESTEROL 46 MG/DL (>40); LDL CHOLESTEROL 81 MG/DL (<100); NON-HDL-C 96 MG/DL; POTASSIUM SERUM 4.4 MEQ/L (3.5-5.1); SODIUM LEVEL 140 MEQ/L (136-145); THYROID STIMULATING HORMONE 0.968 uIU/ML (0.358-3.740); TOTAL PROTEIN 7.1 GM/DL (6.4-8.2); TRIGLYCERIDES LEVEL 77 MG/DL (<150)
== END ==
LOC: M LAB 09:16
PROVIDERS: ATTEND Nurse Practitioner Family
DX: E78.5 Hyperlipidemia, unspecified (principal); I10 Essential (primary) hypertension; E11.9 Type 2 diabetes mellitus without complications

== ENCOUNTER → 2021-11-03 | Outpatient (CLI) | payer MEDICARE ==
--- NOTE | 2021-11-04 03:18 | REPVR ---
PROCEDURE INFORMATION: Exam: MR Lumbar Spine Without Contrast Exam date and time: 11/03/2021 8:28 AM Age: 71 years old Clinical indication: Low back pain; Additional info: Spondylosis TECHNIQUE: Imaging protocol: Multiplanar magnetic resonance images of the lumbar spine without intravenous contrast. COMPARISON: CR SPINE LS W/BENDING 10/11/2021 11:13 AM FINDINGS: Vertebrae: The lumbar vertebral bodies are normal in height. Grade 1 anterolisthesis of L4 on L5. Mild dextroscoliosis of the lumbar spine. Spinal cord: The distal end of the conus medullaris ends at L1, normal in position. Multilevel findings: Degenerative disc disease is noted from L1-L2 through L4-L5, with a decrease in the T2 signal intensity of the discs as well as disc bulge/osteophyte complexes. Additional degenerative changes noted at T11-12. L1-L2: Bilateral facet arthropathy with hypertrophy of the ligamentum flavum. A left-sided disc bulge/osteophyte complex with protrusion causes a mild impression on the left ventral thecal sac. No significant neural foraminal narrowing bilaterally. L2-L3: Bilateral facet arthropathy with hypertrophy of the ligamentum flavum. A broad-based disc bulge is identified. Mild prominence of the posterior epidural fat. Severe narrowing of the thecal sac. The AP dimension of the thecal sac measures 7 mm. Narrowing of both lateral recesses. Mild narrowing of the proximal left neural foramen. No significant narrowing of the right neural foramen. L3-L4: Bilateral facet arthropathy with hypertrophy of the ligamentum flavum. Mild to moderate spinal canal stenosis. Narrowing of both lateral recesses. A broad-based disc bulge is visualized. Mild bilateral neural foraminal narrowing. L4-L5: Bilateral facet arthropathy with hypertrophy of the ligamentum flavum. Mild spinal canal stenosis. No significant neural foraminal narrowing bilaterally. L5-S1: Bilateral facet arthropathy. There is no significant narrowing of the thecal sac or neural foramina. Soft tissues: Soft tissue swelling posteriorly. Kidneys and ureters: At the lower pole of the right kidney, there is a T2 hyperintense cyst or cystic lesion partially visualized measuring 4.5 cm in diameter. An additional small right renal cyst is identified. Multiple T2 hyperintense lesions are visualized within the liver, incompletely evaluated on this study. IMPRESSION: 1. Grade 1 anterolisthesis of L4 on L5. 2. Degenerative changes are visualized diffusely within the lumbar spine, as well as the T11-12 level, as described above. 3. Severe narrowing of the thecal sac at L2-L3. [id number] spinal canal stenosis at L3-L4, with mild spinal canal stenosis at L4-L5. 4. At L1-L2, a left-sided disc bulge/osteophyte complex with protrusion causes a mild impression on the left ventral thecal sac. 5. Neural foraminal narrowing at L2-L3 and L3-L4. 6. Mild dextroscoliosis of the lumbar spine. 7. At the lower pole of the right kidney, there is a cyst or cystic lesion partially visualized measuring 4.5 cm in diameter. An additional small right renal cyst is identified. Multiple T2 hyperintense lesions are visualized within the liver, incompletely evaluated on this study. A follow-up CT or MRI with contrast is recommended, as clinically indicated. 8. Additional findings described above. Electronically signed by: Catarino Monzon On 11/04/2021 03:18:28 AM
== END ==
LOC: M RAD 07:16
PROVIDERS: ATTEND Orthopaedic Surgery
DX: M47.26 Other spondylosis with radiculopathy, lumbar region (principal)

== ENCOUNTER → 2022-06-01 | Outpatient (CLI) | payer MEDICARE ==
[~2022-06-01] MED LIST changes: +ALBU2.5V10 NEB; -ALBU83IN NEB; -LISI-898 PO; +LISI5TAB11 PO
== END ==
LOC: M WHC 06:51
PROVIDERS: ATTEND Nurse Practitioner Family
DX: Z12.31 Encounter for screening mammogram for malignant neoplasm of breast (principal)

== ENCOUNTER → 2023-02-15 | Outpatient (CLI) | payer MEDICARE ==
[2023-02-15 15:14] LABS: BASO # 0.1 10^3/uL (0.0-0.2); BASO % 0.7 % (0.0-1.0); EOS # 0.2 10^3/uL (0.0-0.5); EOS % 2.4 % (0.0-3.0); HEMOGLOBIN 13.1 g/dl (12.0-15.5); LYMPH # 2.1 10^3/uL (1.5-5.0); LYMPH % 23.6 % (24.0-44.0); MEAN CORPUSCULAR HEMOGLOBIN 28.4 pg (27.0-33.0); MEAN CORPUSCULAR HGB CONC 32.8 g/dl (32.0-36.5); MEAN CORPUSCULAR VOLUME 86.8 fl (80.0-96.0); MONO # 0.8 10^3/uL (0.0-0.8); NEUTROPHILS # 5.8 10^3/uL (1.5-8.5); NEUTROPHILS % 63.7 % (36.0-66.0); PLATELET COUNT, AUTOMATED 259 10^3/uL (150-450); RED BLOOD COUNT 4.61 10^6/uL (4.00-5.40); WHITE BLOOD COUNT 9.1 10^3/uL (4.0-10.0)
[2023-02-15 15:34] LABS: HEMOGLOBIN A1c 6.4 % (4.0-6.0)
[2023-02-15 15:43] LABS: CREATININE, URINE 103.9 MG/DL; MALB URINE SIEMENS < 3.0 MG/L; MAU/CREAT RATIO 2.8 MCG/MG (0.0-30.0)
[2023-02-15 15:45] LABS: ALBUMIN 4.1 G/DL (3.2-5.2); ALKALINE PHOSPHATASE 102 U/L (46-116); ALT/SGPT 25 U/L (7.0-40); AST/SGOT 20 U/L (<34); BILIRUBIN,TOTAL 0.5 MG/DL (0.3-1.2); BLOOD UREA NITROGEN 17 MG/DL (9-23); CALCIUM LEVEL 9.1 MG/DL (8.3-10.6); CARBON DIOXIDE LEVEL 31 MMOL/L (20-31); CHLORIDE LEVEL 103 MMOL/L (98-107); CHOLESTEROL LEVEL 192 MG/DL (<200); CHOLESTEROL RISK RATIO 4.51 (<5); CREATININE FOR GFR 0.59 MG/DL (0.55-1.30); GLOMERULAR FILTRATION RATE > 60.0 (>39); GLUCOSE, FASTING 104 MG/DL (74-106); HDL CHOLESTEROL 42.5 MG/DL (>40); LDL CHOLESTEROL 119.5 MG/DL (<100); NON-HDL-C 149.5 MG/DL; POTASSIUM SERUM 4.5 MMOL/L (3.5-5.1); SODIUM LEVEL 139 MMOL/L (136-145); TOTAL PROTEIN 6.8 G/DL (5.7-8.2); TRIGLYCERIDES LEVEL 150 MG/DL (<150)
[2023-02-15 15:46] LABS: FREE T4 1.12 NG/DL (0.89-1.76); THYROID STIMULATING HORMONE 0.796 uIU/ML (0.55-4.78)
== END ==
LOC: M PLALAB 12:32
PROVIDERS: ATTEND Nurse Practitioner Family
DX: I10 Essential (primary) hypertension (principal)

== ENCOUNTER 2023-03-21 06:27 | Emergency (ER) | payer MEDICARE ==
[~2023-03-21] VITALS: Ht 162.6 cm; Wt 119.8 kg
[2023-03-21 08:12] LABS: BASO % 0.3 % (0.0-1.0); EOS # 0.2 10^3/uL (0.0-0.5); HEMATOCRIT 36.9 % (36.0-47.0); LYMPH # 1.1 10^3/uL (1.5-5.0); LYMPH % 7.5 % (24.0-44.0); MEAN CORPUSCULAR HEMOGLOBIN 28.2 pg (27.0-33.0); MEAN CORPUSCULAR HGB CONC 32.5 g/dl (32.0-36.5); MEAN CORPUSCULAR VOLUME 86.6 fl (80.0-96.0); MONO # 0.9 10^3/uL (0.0-0.8); MONO % 6.1 % (2.0-8.0); NEUTROPHILS # 12.7 10^3/uL (1.5-8.5); NEUTROPHILS % 84.6 % (36.0-66.0); PLATELET COUNT, AUTOMATED 203 10^3/uL (150-450); RED BLOOD COUNT 4.26 10^6/uL (4.00-5.40)
[2023-03-21 08:32] LABS: APPEARANCE, URINE CLEAR (CLEAR); BACTERIA, URINE AUTO NEGATIVE (NEGATIVE); BILIRUBIN, URINE AUTO NEGATIVE (NEGATIVE); BLOOD, URINE BLOOD 1+ (NEGATIVE); COLOR, URINE STRAW (YELLOW); GLUCOSE, URINE (UA) AUTO NEGATIVE (NEGATIVE); KETONE, URINE AUTO NEGATIVE (NEGATIVE); LEUKOCYTE ESTERASE, URINE AUTO NEGATIVE (NEGATIVE); NITRITE, URINE AUTO NEGATIVE (NEGATIVE); PROTEIN, URINE AUTO NEGATIVE (NEGATIVE); RBC, URINE AUTO 1 /HPF (0-3); SPECIFIC GRAVITY URINE AUTO 1.011 (1.002-1.035); SQUAMOUS EPITHELIAL CELL UR AU 0 /HPF (0-6); UROBILINOGEN, URINE AUTO 0.2 mg/dL (0.0-2.0); WBC, URINE AUTO 1 /HPF (0-3)
[2023-03-21] MEDS ORDERED: FUROSEMIDE 40MG/4ML VIAL IV ONE (08:35)
[2023-03-21 08:37] LABS: BLOOD UREA NITROGEN 16 MG/DL (9-23); CALCIUM LEVEL 8.9 MG/DL (8.3-10.6); CARBON DIOXIDE LEVEL 28 MMOL/L (20-31); CHLORIDE LEVEL 103 MMOL/L (98-107); CPK CREATINE PHOSPHOKINASE 86 U/L (34-145); CREATININE FOR GFR 0.51 MG/DL (0.55-1.30); GLOMERULAR FILTRATION RATE > 60.0 (>39); GLUCOSE, FASTING 176 MG/DL (74-106); MB/CK RELATIVE INDEX 1.16 (< OR =4); POTASSIUM SERUM 4.1 MMOL/L (3.5-5.1); SODIUM LEVEL 138 MMOL/L (136-145)
[2023-03-21 08:39] LABS: THYROID STIMULATING HORMONE 1.161 uIU/ML (0.55-4.78)
[2023-03-21 08:40] LABS: FREE T4 1.28 NG/DL (0.89-1.76)
[2023-03-21] MEDS ORDERED: ISOVUE-370 76% 100ML VIAL As Ordered ONE (09:35)
[2023-03-21 10:18] LABS: CK-MB VALUE MASS 1.4 NG/ML (<3.6); MB/CK RELATIVE INDEX 1.53 (< OR =4)
[2023-03-21] MEDS ORDERED: cefTRIAXone SOD 1 GM in D5W MINI-BAG PLUS 50 ML IV ONE (10:40)
[2023-03-21] MEDS ORDERED: ACETAMINOPHEN 325 MG TAB PO ONE (11:10)
[2023-03-21 11:43] LABS: CK-MB VALUE MASS 1.2 NG/ML (<3.6)
[2023-03-21 11:45] LABS: MB/CK RELATIVE INDEX 1.37 (< OR =4)
[2023-03-21 13:00] VITALS: BP 162/88
[2023-03-21] MEDS ORDERED: CEFD300C41 PO ×2 (13:01→14:11)
[2023-03-21] MEDS ORDERED: IPRA0.00 NEB (13:01)
[2023-03-21] MEDS ORDERED: SPIR-10 PO ×2 (13:01→14:11)
[2023-03-21] MEDS ORDERED: CHLO125TA PO ×2 (13:01→14:11)
[2023-03-21] MEDS ORDERED: ZITHTAB PO ×2 (13:01→14:11)
[2023-03-21] MEDS ORDERED: IPRA0.00 INH (14:11)
== END 2023-03-21 13:46 | disposition home or self-care (01) ==
LOC: M ED 06:27
DX: J18.9 Pneumonia, unspecified organism (principal); I16.0 Hypertensive urgency; R00.0 Tachycardia, unspecified; I51.7 Cardiomegaly; J44.9 Chronic obstructive pulmonary disease, unspecified; K21.9 Gastro-esophageal reflux disease without esophagitis; Z87.891 Personal history of nicotine dependence; Z91.02 Food additives allergy status; Z79.52 Long term (current) use of systemic steroids; Z79.02 Long term (current) use of antithrombotics/antiplatelets; Z79.83 Long term (current) use of bisphosphonates; Z79.2 Long term (current) use of antibiotics; Z79.899 Other long term (current) drug therapy
CPT/HCPCS: 71046; 71275; 80048; 81001; 82550; 82553; 83880; 84439; 84443; 84484; 85025; 87486; 87581; 87633; 87798; 93005; 93041; 96365; 96366; 96375; 99285; J0696; J1940; Q9967

== ENCOUNTER → 2023-08-06 | Outpatient (CLI) | payer MEDICARE ==
[~2023-08-06] MED LIST changes: +CEFD300C42 PO; +CHLO125TA PO; +IPRA0.00 INH; +IPRA0.00 NEB; +SPIR-10 PO
[2023-08-06 15:58] LABS: BASO # 0.1 10^3/uL (0.0-0.2); BASO % 0.5 % (0.0-1.0); EOS # 0.2 10^3/uL (0.0-0.5); EOS % 2.1 % (0.0-3.0); HEMOGLOBIN 12.3 g/dl (12.0-15.5); LYMPH # 2.1 10^3/uL (1.5-5.0); MEAN CORPUSCULAR HEMOGLOBIN 28.7 pg (27.0-33.0); MEAN CORPUSCULAR HGB CONC 32.4 g/dl (32.0-36.5); MEAN CORPUSCULAR VOLUME 88.8 fl (80.0-96.0); MONO # 0.8 10^3/uL (0.0-0.8); MONO % 8.3 % (2.0-8.0); NEUTROPHILS # 6.7 10^3/uL (1.5-8.5); NEUTROPHILS % 67.2 % (36.0-66.0); PLATELET COUNT, AUTOMATED 273 10^3/uL (150-450); RED BLOOD COUNT 4.28 10^6/uL (4.00-5.40)
[2023-08-06 16:09] LABS: ALKALINE PHOSPHATASE 119 U/L (46-116); ALT/SGPT 23 U/L (7.0-40); AST/SGOT 17 U/L (<34); BILIRUBIN,TOTAL 0.3 MG/DL (0.3-1.2); BLOOD UREA NITROGEN 11 MG/DL (9-23); CALCIUM LEVEL 9.5 MG/DL (8.3-10.6); CARBON DIOXIDE LEVEL 32 MMOL/L (20-31); CHLORIDE LEVEL 104 MMOL/L (98-107); CHOLESTEROL LEVEL 192 MG/DL (<200); CHOLESTEROL RISK RATIO 4.32 (<5); CREATININE FOR GFR 0.54 MG/DL (0.55-1.30); GLOMERULAR FILTRATION RATE > 60.0 (>39); GLUCOSE, FASTING 120 MG/DL (74-106); HDL CHOLESTEROL 44.4 MG/DL (>40); NON-HDL-C 147.6 MG/DL; POTASSIUM SERUM 4.5 MMOL/L (3.5-5.1); SODIUM LEVEL 140 MMOL/L (136-145); TOTAL PROTEIN 7.1 G/DL (5.7-8.2); TRIGLYCERIDES LEVEL 143 MG/DL (<150)
[2023-08-06 17:30] LABS: HEMOGLOBIN A1c 7.1 % (4.0-6.0)
== END ==
LOC: M PLALAB 12:26
PROVIDERS: ATTEND Nurse Practitioner Family
DX: E78.5 Hyperlipidemia, unspecified (principal); E11.9 Type 2 diabetes mellitus without complications; I10 Essential (primary) hypertension

== ENCOUNTER → 2023-08-08 | Outpatient (CLI) | payer MEDICARE ==
[~2023-08-08] MED LIST changes: +CEFD300C41 PO; -CEFD300C42 PO
== END ==
LOC: M PLAIMG 11:53
PROVIDERS: ATTEND Nurse Practitioner Family
DX: R06.02 Shortness of breath (principal)

== ENCOUNTER → 2024-02-07 | Outpatient (CLI) | payer MEDICARE, OTHER ==
[~2024-02-07] MED LIST changes: +CEFD1CAP9 PO; -CEFD300C41 PO
[2024-02-07 17:59] LABS: BASO # 0.1 10^3/uL (0.0-0.2); BASO % 0.6 % (0.0-1.0); EOS # 0.3 10^3/uL (0.0-0.5); EOS % 1.9 % (0.0-3.0); HEMATOCRIT 38.1 % (36.0-47.0); HEMOGLOBIN 12.3 g/dl (12.0-15.5); LYMPH # 3.2 10^3/uL (1.5-5.0); LYMPH % 24.4 % (24.0-44.0); MEAN CORPUSCULAR HEMOGLOBIN 28.3 pg (27.0-33.0); MEAN CORPUSCULAR HGB CONC 32.3 g/dl (32.0-36.5); MEAN CORPUSCULAR VOLUME 87.6 fl (80.0-96.0); MONO # 0.9 10^3/uL (0.0-0.8); MONO % 6.6 % (2.0-8.0); NEUTROPHILS # 8.5 10^3/uL (1.5-8.5); NEUTROPHILS % 65.5 % (36.0-66.0); PLATELET COUNT, AUTOMATED 307 10^3/uL (150-450); RED BLOOD COUNT 4.35 10^6/uL (4.00-5.40)
[2024-02-07 18:07] LABS: CREATININE, URINE 164.4 MG/DL; MAU/CREAT RATIO 4.8 MCG/MG (0.0-30.0)
[2024-02-07 18:13] LABS: HEMOGLOBIN A1c 9.2 % (4.0-6.0)
[2024-02-07 18:14] LABS: ALKALINE PHOSPHATASE 143 U/L (46-116); ALT/SGPT 29 U/L (7.0-40); AST/SGOT 19 U/L (<34); BILIRUBIN,TOTAL 0.4 MG/DL (0.3-1.2); BLOOD UREA NITROGEN 20 MG/DL (9-23); CALCIUM LEVEL 9.4 MG/DL (8.3-10.6); CARBON DIOXIDE LEVEL 28 MMOL/L (20-31); CHLORIDE LEVEL 103 MMOL/L (98-107); CHOLESTEROL LEVEL 158 MG/DL (<200); CHOLESTEROL RISK RATIO 4.24 (<5); GLOMERULAR FILTRATION RATE > 60.0 (>39); GLUCOSE, FASTING 184 MG/DL (74-106); HDL CHOLESTEROL 37.2 MG/DL (>40); LDL CHOLESTEROL 71.8 MG/DL (<100); MAGNESIUM LEVEL 1.8 MG/DL (1.8-2.4); NON-HDL-C 120.8 MG/DL; POTASSIUM SERUM 4.6 MMOL/L (3.5-5.1); SODIUM LEVEL 138 MMOL/L (136-145); TOTAL PROTEIN 7.1 G/DL (5.7-8.2); TRIGLYCERIDES LEVEL 245 MG/DL (<150)
== END ==
LOC: M PLALAB 14:34
PROVIDERS: ATTEND Nurse Practitioner Family
DX: E11.9 Type 2 diabetes mellitus without complications (principal)

== ENCOUNTER → 2024-08-12 | Outpatient (CLI) | payer OTHER ==
[~2024-08-12] MED LIST changes: -ATOR1TAB21; +ATOR1TAB21 PO; +LORA-1041 PO; +METF-838 PO; +OMEP1CAP73 PO
[2024-08-12 15:18] LABS: BASO # 0.1 10^3/uL (0.0-0.2); BASO % 0.5 % (0.0-1.0); EOS # 0.2 10^3/uL (0.0-0.5); EOS % 1.8 % (0.0-3.0); HEMOGLOBIN 11.6 g/dl (12.0-15.5); LYMPH # 2.2 10^3/uL (1.5-5.0); LYMPH % 19.9 % (24.0-44.0); MEAN CORPUSCULAR HEMOGLOBIN 28.2 pg (27.0-33.0); MEAN CORPUSCULAR HGB CONC 32.2 g/dl (32.0-36.5); MEAN CORPUSCULAR VOLUME 87.6 fl (80.0-96.0); MONO % 9.1 % (2.0-8.0); NEUTROPHILS # 7.3 10^3/uL (1.5-8.5); NEUTROPHILS % 67.3 % (36.0-66.0); PLATELET COUNT, AUTOMATED 261 10^3/uL (150-450); RED BLOOD COUNT 4.11 10^6/uL (4.00-5.40); WHITE BLOOD COUNT 10.8 10^3/uL (4.0-10.0)
[2024-08-12 15:49] LABS: MALB URINE SIEMENS < 3.0 MG/L
[2024-08-12 15:50] LABS: CREATININE, URINE 71.8 MG/DL; MAU/CREAT RATIO 4.1 MCG/MG (0.0-30.0)
[2024-08-12 15:51] LABS: ALBUMIN 3.9 G/DL (3.2-5.2); ALKALINE PHOSPHATASE 138 U/L (46-116); ALT/SGPT 17 U/L (7.0-40); AST/SGOT 10 U/L (<34); BILIRUBIN,TOTAL 0.5 MG/DL (0.3-1.2); BLOOD UREA NITROGEN 14 MG/DL (9-23); CALCIUM LEVEL 9.7 MG/DL (8.3-10.6); CARBON DIOXIDE LEVEL 31 MMOL/L (20-31); CHLORIDE LEVEL 102 MMOL/L (98-107); CHOLESTEROL LEVEL 175 MG/DL (<200); CREATININE FOR GFR 0.59 MG/DL (0.55-1.30); GLOMERULAR FILTRATION RATE > 60.0 (>39); GLUCOSE, FASTING 113 MG/DL (74-106); HDL CHOLESTEROL 34.3 MG/DL (>40); LDL CHOLESTEROL 98.7 MG/DL (<100); MAGNESIUM LEVEL 1.9 MG/DL (1.8-2.4); NON-HDL-C 140.7 MG/DL; POTASSIUM SERUM 4.7 MMOL/L (3.5-5.1); SODIUM LEVEL 137 MMOL/L (136-145); TOTAL PROTEIN 7.3 G/DL (5.7-8.2); TRIGLYCERIDES LEVEL 210 MG/DL (<150)
== END ==
LOC: M PLALAB 12:11
PROVIDERS: ATTEND Nurse Practitioner Family
DX: I10 Essential (primary) hypertension (principal); E55.9 Vitamin D deficiency, unspecified; E11.9 Type 2 diabetes mellitus without complications; E78.5 Hyperlipidemia, unspecified

== ENCOUNTER → 2024-08-29 | Outpatient (CLI) | payer OTHER ==
[~2024-08-29] MED LIST changes: +ISOVUE-300 61% 100ML VIAL As Ordered ONE; +LIDOCAINE 1% MDV 20ML VIAL As Ordered ONE; +PROHANCE 279.3MG/ML 5ML VIAL As Ordered ONE
== END ==
LOC: M RAD 08:46
PROVIDERS: ATTEND Physician Assistant
DX: S40.012D Contusion of left shoulder, subsequent encounter (principal); S46.011A Strain of muscle(s) and tendon(s) of the rotator cuff of right shoulder, initial encounter; M25.711 Osteophyte, right shoulder; X58.XXXA Exposure to other specified factors, initial encounter; Y92.9 Unspecified place or not applicable
CPT/HCPCS: 23350; 73223; 77002; A9576; Q9967

== ENCOUNTER → 2024-12-26 | Outpatient (CLI) | payer MEDICARE, OTHER ==
[~2024-12-26] MED LIST changes: -ISOVUE-300 61% 100ML VIAL As Ordered ONE; -LIDOCAINE 1% MDV 20ML VIAL As Ordered ONE; -PROHANCE 279.3MG/ML 5ML VIAL As Ordered ONE
[2024-12-26 13:46] LABS: BASO # 0.1 10^3/uL (0.0-0.2); BASO % 0.6 % (0.0-1.0); EOS # 0.2 10^3/uL (0.0-0.5); EOS % 2.3 % (0.0-3.0); HEMATOCRIT 33.6 % (36.0-47.0); HEMOGLOBIN 10.5 g/dl (12.0-15.5); LYMPH # 2.3 10^3/uL (1.5-5.0); LYMPH % 26.6 % (24.0-44.0); MEAN CORPUSCULAR HGB CONC 31.3 g/dl (32.0-36.5); MEAN CORPUSCULAR VOLUME 89.6 fl (80.0-96.0); MONO # 0.7 10^3/uL (0.0-0.8); MONO % 8.5 % (2.0-8.0); NEUTROPHILS # 5.3 10^3/uL (1.5-8.5); NEUTROPHILS % 61.3 % (36.0-66.0); PLATELET COUNT, AUTOMATED 267 10^3/uL (150-450); RED BLOOD COUNT 3.75 10^6/uL (4.00-5.40); WHITE BLOOD COUNT 8.6 10^3/uL (4.0-10.0)
[2024-12-26 14:00] LABS: HEMOGLOBIN A1c 5.7 % (4.0-6.0)
[2024-12-26 14:13] LABS: ALBUMIN 3.9 G/DL (3.2-5.2); ALKALINE PHOSPHATASE 107 U/L (35-104); ALT/SGPT 15 U/L (7.0-40); AST/SGOT 17 U/L (<34); BILIRUBIN,TOTAL 0.6 MG/DL (0.3-1.2); BLOOD UREA NITROGEN 25 MG/DL (9-23); CALCIUM LEVEL 9.5 MG/DL (8.3-10.6); CARBON DIOXIDE LEVEL 29 MMOL/L (20-31); CHLORIDE LEVEL 103 MMOL/L (98-107); CHOLESTEROL LEVEL 154 MG/DL (<200); CHOLESTEROL RISK RATIO 4.09 (<5); CREATININE FOR GFR 0.78 MG/DL (0.55-1.30); GLOMERULAR FILTRATION RATE > 60.0 (>39); GLUCOSE, FASTING 97 MG/DL (74-106); HDL CHOLESTEROL 37.6 MG/DL (>40); LDL CHOLESTEROL 91.2 MG/DL (<100); NON-HDL-C 116.4 MG/DL; POTASSIUM SERUM 4.8 MMOL/L (3.5-5.1); SODIUM LEVEL 140 MMOL/L (136-145); TRIGLYCERIDES LEVEL 126 MG/DL (<150)
== END ==
LOC: M PLALAB 11:39
PROVIDERS: ATTEND Nurse Practitioner Family
DX: R60.0 Localized edema (principal); E11.9 Type 2 diabetes mellitus without complications; E78.5 Hyperlipidemia, unspecified; I50.9 Heart failure, unspecified; I11.0 Hypertensive heart disease with heart failure

== ENCOUNTER → 2025-03-18 | Outpatient (CLI) | payer MEDICARE ==
[~2025-03-18] MED LIST changes: +GABA-1171 PO; +SEMA0.257
[2025-03-18 14:07] LABS: BASO # 0.1 10^3/uL (0.0-0.2); BASO % 0.6 % (0.0-1.0); EOS # 0.4 10^3/uL (0.0-0.5); EOS % 2.4 % (0.0-3.0); HEMATOCRIT 34.7 % (36.0-47.0); HEMOGLOBIN 10.9 g/dl (12.0-15.5); LYMPH # 2.4 10^3/uL (1.5-5.0); LYMPH % 16.2 % (24.0-44.0); MEAN CORPUSCULAR HEMOGLOBIN 28.6 pg (27.0-33.0); MEAN CORPUSCULAR HGB CONC 31.4 g/dl (32.0-36.5); MEAN CORPUSCULAR VOLUME 91.1 fl (80.0-96.0); MONO % 6.7 % (2.0-8.0); NEUTROPHILS # 10.7 10^3/uL (1.5-8.5); NEUTROPHILS % 72.7 % (36.0-66.0); PLATELET COUNT, AUTOMATED 254 10^3/uL (150-450); RED BLOOD COUNT 3.81 10^6/uL (4.00-5.40); WHITE BLOOD COUNT 14.7 10^3/uL (4.0-10.0)
[2025-03-18 14:28] LABS: HEMOGLOBIN A1c 6.2 % (4.0-6.0)
[2025-03-18 14:29] LABS: CREATININE, URINE 19.1 MG/DL; MAU/CREAT RATIO 15.7 MCG/MG (0.0-30.0)
[2025-03-18 14:33] LABS: ALBUMIN 3.9 G/DL (3.2-5.2); BILIRUBIN,TOTAL 0.4 MG/DL (0.3-1.2); CALCIUM LEVEL 9.1 MG/DL (8.3-10.6); CHOLESTEROL RISK RATIO 4.09 (<5); CREATININE FOR GFR 0.87 MG/DL (0.55-1.30); GLOMERULAR FILTRATION RATE 70.3 (>39); HDL CHOLESTEROL 40.5 MG/DL (>40); LDL CHOLESTEROL 100.3 MG/DL (<100); MAGNESIUM LEVEL 1.9 MG/DL (1.8-2.4); NON-HDL-C 125.5 MG/DL; POTASSIUM SERUM 5.2 MMOL/L (3.5-5.1); TOTAL PROTEIN 7.2 G/DL (5.7-8.2)
== END ==
LOC: M PLALAB 09:43
PROVIDERS: ATTEND Nurse Practitioner Family
DX: E11.9 Type 2 diabetes mellitus without complications (principal)

== ENCOUNTER → 2025-09-18 | Outpatient (CLI) | payer MEDICARE ==
[~2025-09-18] MED LIST changes: +FURO20TA2 PO
[2025-09-18 14:17] LABS: BASO # 0.1 10^3/uL (0.0-0.2); BASO % 0.6 % (0.0-1.0); EOS # 0.3 10^3/uL (0.0-0.5); EOS % 3.8 % (0.0-3.0); LYMPH # 1.6 10^3/uL (1.5-5.0); LYMPH % 20.7 % (24.0-44.0); MONO # 0.6 10^3/uL (0.0-0.8); MONO % 7.9 % (2.0-8.0); NEUTROPHILS # 5.2 10^3/uL (1.5-8.5); NEUTROPHILS % 65.7 % (36.0-66.0); PLATELET COUNT, AUTOMATED 246 10^3/uL (150-450)
[2025-09-18 14:48] LABS: ESTIMATED AVERAGE GLUCOSE 169.0 MG/DL (60-110)
[2025-09-18 15:07] LABS: ALT/SGPT 20 U/L (7.0-40); AST/SGOT 20 U/L (<34); CALCIUM LEVEL 8.8 MG/DL (8.3-10.6); CARBON DIOXIDE LEVEL 30 MMOL/L (20-31); CHLORIDE LEVEL 102 MMOL/L (98-107); CHOLESTEROL LEVEL 164 MG/DL (<200); CHOLESTEROL RISK RATIO 4.06 (<5); CREATININE FOR GFR 0.80 MG/DL (0.55-1.30); GLOMERULAR FILTRATION RATE 77.8 (>39); IRON (FE) 44 UG/DL (50-170); LDL CHOLESTEROL 93.7 MG/DL (<100); MAGNESIUM LEVEL 1.8 MG/DL (1.8-2.4); NON-HDL-C 123.7 MG/DL; PERCENT SATURATION 13.3 % (13.2-45.0); POTASSIUM SERUM 4.6 MMOL/L (3.5-5.1); SODIUM LEVEL 139 MMOL/L (136-145); TRIGLYCERIDES LEVEL 150 MG/DL (<150)
[2025-09-18 15:31] LABS: CREATININE, URINE 57.0 MG/DL; MALB URINE SIEMENS < 3.0 MG/L
[2025-09-19 08:57] LABS: PROTEIN, TOTAL SO 6.7 g/dL (6.1-8.1)
== END ==
LOC: M PLALAB 08:59
PROVIDERS: ATTEND Nurse Practitioner Family
DX: Z01.84 Encounter for antibody response examination (principal); D64.9 Anemia, unspecified; D72.829 Elevated white blood cell count, unspecified; E55.9 Vitamin D deficiency, unspecified; E78.5 Hyperlipidemia, unspecified; Z79.899 Other long term (current) drug therapy